=== PATIENT | female | born 1985 | race American Indian/Alaskan Native ===

== ENCOUNTER 2018-06-17 22:26 | Inpatient (IN) | payer OTHER ==
[2018-06-17] MEDS ORDERED: NACL 0.9% 1000 ML 1,000 ML IV ONE (23:36)
[2018-06-17] MEDS ORDERED: BENADRYL IV ONE (23:44)
[2018-06-17] MEDS ORDERED: REGLAN IV ONE (23:44)
[2018-06-17] MEDS ORDERED: MORPHINE IV ONE (23:44)
--- NOTE | 2018-06-17 23:53 | Emergency Department Report ---
ED Abdominal Pain HPI - General Chief Complaint: Nausea/Vomiting/Diarrhea Stated Complaint: WEAKNESS/EMESIS Time Seen by Provider: 06/17/18 23:43 Source: patient Mode of arrival: Ambulatory Limitations: No Limitations - History of Present Illness Initial Comments: PT is s 33 y/o aaf with hx of peptic ulcer disease who presents for abd pain and n/v 1 week with some diarrhea and constipation last vomiting 20 minutes ago last by mouth intake 3 days ago pain described as 8/10 burning aching . The patient is not taken H2 blockers at this time MD Complaint: abdominal pain Onset/Timin -: week(s) Location: diffuse Migration to: periumbilical, LLQ, RLQ Severity: moderate Severity scale (0 -10): 7 Quality: sharp Consistency: constant Improves With: nothing Worsens With: eating, movement Context: other (peptic ulcer) Associated Symptoms: nausea, vomiting, diarrhea, constipation - Related Data LMP (females 10-50): other (1 yr ago) Home Medications Medication Instructions Recorded Confirmed Last Taken Hyoscyamine Subl [Levsin Sl 0.125 0.125 mg SL Q6HR PRN 05/23/15 05/23/15 Unknown TAB] Zolpidem Tartrate [Edluar SUBL] 10 mg PO QHS PRN 05/23/15 05/23/15 05/23/15 yes Allergies Allergy/AdvReac Type Severity Reaction Status Date / Time No Known Allergies Allergy Verified 05/23/15 22:19 ED Review of Systems ROS: Stated complaint: WEAKNESS/EMESIS Other details as noted in HPI Constitutional: chills, malaise. denies: fever Eyes: denies: eye pain, eye discharge, vision change ENT: denies: ear pain, throat pain Respiratory: denies: cough, shortness of breath, wheezing Cardiovascular: denies: chest pain, palpitations Endocrine: no symptoms reported Gastrointestinal: abdominal pain, nausea, vomiting, diarrhea, constipation Genitourinary: denies: urgency, dysuria, discharge Musculoskeletal: back pain. denies: joint swelling, arthralgia Skin: denies: rash, lesions Neurological: denies: headache, weakness, paresthesias Psychiatric: denies: anxiety, depression Hematological/Lymphatic: denies: easy bleeding, easy bruising ED Past Medical Hx - Past Medical History Previous Medical History?: Yes Additional medical history: Stomach Ulcers - Surgical History Past Surgical History?: Yes Additional Surgical History: Tonsillectomy - Social History Smoking Status: Current Every Day Smoker Substance Use Type: None - Medications Home Medications: Home Medications Medication Instructions Recorded Confirmed Last Taken Type Hyoscyamine Subl [Levsin Sl 0.125 0.125 mg SL Q6HR PRN 05/23/15 05/23/15 Unknown History TAB] Zolpidem Tartrate [Edluar SUBL] 10 mg PO QHS PRN 05/23/15 05/23/15 05/23/15 History yes ED Physical Exam - General Limitations: No Limitations General appearance: alert, in no apparent distress - Head Head exam: Present: atraumatic, normocephalic - Eye Eye exam: Present: normal appearance, PERRL, EOMI - ENT ENT exam: Present: mucous membranes moist - Neck Neck exam: Present: normal inspection - Respiratory Respiratory exam: Present: normal lung sounds bilaterally. Absent: respiratory distress, wheezes, stridor, chest wall tenderness - Cardiovascular Cardiovascular Exam: Present: normal rhythm, tachycardia, normal heart sounds. Absent: systolic murmur, diastolic murmur, rubs, gallop - GI/Abdominal GI/Abdominal exam: Present: soft, tenderness (RLQ LLQ ), hyperactive bowel so unds. Absent: distended, guarding, rebound, rigid, mass, bruit, hernia - Rectal Rectal exam: Present: deferred - Extremities Exam Extremities exam: Present: normal inspection, full ROM, normal capillary refill. Absent: tenderness, pedal edema, joint swelling - Back Exam Back exam: Present: normal inspection, full ROM. Absent: tenderness, CVA tenderness (R), CVA tenderness (L), muscle spasm, paraspinal tenderness, vertebral tenderness, rash noted - Neurological Exam Neurological exam: Present: alert, oriented X3, CN II-XII intact, normal gait - Psychiatric Psychiatric exam: Present: normal affect, normal mood - Skin Skin exam: Present: warm, dry, intact, normal color. Absent: rash ED Course Vital Signs 06/17/18 06/18/18 22:37 01:05 Temperature 97 F L Pulse Rate 133 H Respiratory 18 20 Rate Blood Pressure 117/90 O2 Sat by Pulse 99 Oximetry ED Medical Decision Making - Lab Data Result diagrams: 06/17/18 23:07 06/17/18 23:07 Labs 06/17/18 06/17/18 06/17/18 23:00 23:07 23:07 WBC 24.4 H RBC 4.36 Hgb 15.6 H Hct 44.4 H MCV 102 H MCH 36 H MCHC 35 H RDW 15.6 H Plt Count 177 PT INR APTT Sodium 134 L Potassium 3.7 Chloride 91.6 L Carbon Dioxide 19 L Anion Gap 27 BUN 10 Creatinine 0.5 L Estimated GFR 10 BUN/Creatinine Ratio 20 Glucose 159 H Calcium 9.5 Total Bilirubin 0.90 AST 69 H ALT 50 Alkaline Phosphatase 142 H Total Protein 8.2 Albumin 3.8 L Albumin/Globulin Ratio 0.9 Lipase 2528 H HCG, Qual 06/17/18 06/18/18 23:07 00:02 WBC RBC Hgb Hct MCV MCH MCHC RDW Plt Count PT 13.2 INR 0.95 APTT 24.9 Sodium Potassium Chloride Carbon Dioxide Anion Gap BUN Creatinine Estimated GFR BUN/Creatinine Ratio Glucose Calcium Total Bilirubin AST ALT Alkaline Phosphatase Total Protein Albumin Albumin/Globulin Ratio Lipase HCG, Qual Negative - Radiology Data Radiology results: report reviewed, image reviewed - Medical Decision Making CT abd pelvis: enlarged pancreas moderate stranding and LUQ free fluid, pain is improved, pt confirms last ETOH 3 days ago , denies withdrawal symptoms, no tremor noted, no agitation, no hallucinations noted at this time , N/V is improved with reglan given in ed pain is now 4/10 , plan: Consult ED attending, Consult Hospitalist, admit to hospitalist for dx pancreatitis , consult General Surgery for free fluid abd. 0210: consult Ed attending Dr Morton: recommendation consult General Surgery , consult hospitalist for Dx. Acute Pancreatitis, IVFs , Zosyn, pain control, 2015: Consulted General Surgery Dr. Ortez: recommendation : Gallbladder US now and repeat tomorrow, repeat Lipase, and lactic Acid, IVFs, Admit to Hospitalist Dx: Pancreatitis 0220: Consulted Hospitalist for patient Handoff report, at this time Dx: Pancreatitis, Discussed same with patient, patient verbalizes agreement and consent with tx plan, will admit for dx : pancreatitis, abs, ivfs, nausea and pain control, pt is currently a/o x 3 with nad at this time pain is 4/10 and managable per patient . Critical care attestation.: If time is entered above; I have spent that time in minutes in the direct care of this critically ill patient, excluding procedure time. ED Disposition Clinical Impression: Pancreatitis Qualifiers: Chronicity: acute Pancreatitis type: unspecified pancreatitis type Acute pancreatitis complication: unspecified Qualified Code(s): K85.90 - Acute pancreatitis without necrosis or infection, unspecified Abdominal pain Qualifiers: Abdominal location: generalized Qualified Code(s): R10.84 - Generalized abdominal pain Disposition: OP ADMIT IP TO THIS HOSP Is pt being admited?: Yes Does the pt Need Aspirin: No Condition: Stable Instructions: Pancreatitis (ED) Time of Disposition: 02:31
[2018-06-17 23:56] LABS: Hematocrit 44.4 % (30.3-42.9); Hemoglobin 15.6 gm/dl (10.1-14.3); Mean Corpuscular HGB Conc 35 % (30-34); Mean Corpuscular Volume 102 fl (79-97); Platelet Count 177 K/mm3 (140-440); Red Blood Count 4.36 M/mm3 (3.65-5.03); Red Cell Distribution Width 15.6 % (13.2-15.2)
[2018-06-18 00:17] LABS: Albumin 3.8 g/dL (3.9-5); Calcium 9.5 mg/dL (8.4-10.2)
[2018-06-18 01:26] LABS: INR 0.95 (0.87-1.13); Partial Thromboplastin Time 24.9 Sec. (24.2-36.6)
--- NOTE | 2018-06-18 01:39 | Cat Scan Report ---
PROCEDURE: CT ABDOMEN PELVIS W CON TECHNIQUE: Computerized axial tomography of the abdomen and pelvis was performed after the IV inject ion of iodinated nonionic contrast. HISTORY: abd pain COMPARISONS: None . FINDINGS: Visualized lower thorax: No significant abnormality. Liver: The liver is fatty infiltrated. Spleen: Normal size and attenuation. Gallbladder and biliary system: The gallbladder is distended. No stones are noted.. Pancreas: Pancreas is enlarged. There are a few small cystic regions identified near the head of the pancreas. There is mesenteric fat stranding surrounding the pancreas with minimal fluid in this grace on. Acute pancreatitis is within the differential. There is no evidence of necrosis. No pseudocyst is seen.. Adrenals: Normal. Kidneys: Normal. GI tract: The stomach is normal. The small bowel has a normal caliber without obstruction. There are a few loops of slightly dilated small bowel in the lower abdomen near the terminal ileum. A mild ile us in this region is active. An enteritis is also within the differential. The cecum and appendix are normal. There is slight thickening of the colon wall involving the distal transverse and descending colon, no complication.. . Lymph nodes and mesentery: Normal. Vasculature: Normal.. Bladder: Normal. Reproductive organs: No pelvic masses. Peritoneum: Moderate fluid identified in the upper abdomen around the pancreas and left upper quadran t. There is moderate fluid in the lower pelvis.. Musculoskeletal structures: No significant abnormality. Other: None . IMPRESSION: The pancreas is diffusely enlarged. There is stranding of the peripancreatic fat with fl uid in the upper abdomen around the pancreas and left upper quadrant. Pancreatitis is suspected. Ther e are a few small cysts in the head of the pancreas. No evidence of necrosis or pseudocyst formation. There is fatty infiltration of the liver. There is distention of the gallbladder lumen. No stones are identified. There are a few loops of slightly dilated fluid-filled small bowel in the lower abdomen near the term inal ileum. The terminal ileitis, mild ileus or slight enteritis in this region are within the differ ential. There is some bowel wall thickening of the colon involving the distal transverse and descendi ng colon. A diffuse colitis pattern is suspected. No complication . This document is electronically signed by Giovana Sanchez DO., June 18 2018 01:37:31 AM ET
[2018-06-18] MEDS ORDERED: ZOSYN/NS 4.5GM/100ML 4.5 GM/100 ML VIAL IV ONE (01:56)
[2018-06-18] MEDS ORDERED: NACL 0.9% 1000 ML 1,000 ML IV ONE (02:20)
[2018-06-18 02:22] LABS: Basophils % (Manual) 0 % (0.0-1.8); Eosinophils % (Manual) 0 % (0.0-4.3); Total Cells Counted 100
[2018-06-18 02:23] LABS: Large Platelets 1+; Platelet Estimate Consistent w Auto; RBC Morphology Normal
[2018-06-18] MEDS ORDERED: TYLENOL PO PRN (03:17)
[2018-06-18] MEDS ORDERED: ZOFRAN IV PRN (03:17)
[2018-06-18] MEDS ORDERED: SODIUM CHLORIDE FLUSH SYRINGE 10 ML IV PRN (03:17)
--- NOTE | 2018-06-18 03:25 | Ultrasound Report ---
PROCEDURE: US ABDOMEN LIMITED TECHNIQUE: Routine transabdominal imaging was obtained of the right upper quadrant. HISTORY: abd pain COMPARISONS: CT abdomen pelvis 06/18/2018 FINDINGS: The gallbladder is normal in size and contains sludge. Stones are not seen. The gallbladder wall thic kness is 2.7 mm. The common bile duct is enlarged at 7.8 mm. The liver reveals increased echotexture compatible hepatic steatosis. The pancreas is not well seen because of bowel gas. The right kidney sh ows no evidence of hydronephrosis. IMPRESSION: Dependent sludge in the gallbladder. No gallstones or secondary signs of acute cholecystitis. Enlarged common bile duct at 7.8 mm. A distal common duct stone cannot be excluded. Hepatic steatosis. Pancreas is not well seen because of obscuring bowel gas.. This document is electronically signed by Rehan Casey MD., June 18 2018 03:22:44 AM ET
--- NOTE | 2018-06-18 03:29 | History and Physical Report ---
History of Present Illness Date of examination: 06/18/18 History of present illness: 33-year-old woman with a history of peptic ulcer disease comes emergency room, complaining of abdominal pain that started on Monday. Pain is in the epigastric area, described as a sharp pain, constant, intensity 8/10, radiating to the back. She took ibuprofen, hydrocodone for the pain without any relief. Rest and also vomiting 3 days, unable to tolerate oral intake. Drinks 3 shots a day, last drink was . She thinks she might have vomited some blood today, none seen in the ER Review of systems Constitutional: no weight loss, chills, fever Ears, eyes, nose, mouth and throat: no nasal congestion, no nasal discharge, no sinus pressure, no vision change, no red eye. Neck: No neck pain or rigidity. Cardiovascular: no palpitations, chest pain Respiratory: no cough, shortness of breath Gastrointestinal: no hematochezia, abdominal pain Genitourinary : no frequency , no hematuria Musculoskeletal: no joint swelling or muscle ache Integumentary: no rash, no pruritis Neurological: no parathesias, no focal weakness Endocrine: no cold or heat intolerance, no polyuria or polydipsia Hematologic/Lymphatic: no easy bruising, no easy bleeding, no gland swelling Allergic/Immunologic: no urticaria, no angioedema. PAST MEDICAL HISTORY:peptic ulcer disease PAST SURGICAL HISTORY: Tonsillectomy SOCIAL HISTORY:Drinks 3 shots a day, no drugs, smoke 1pack a day FAMILY HISTORY: Hypertension Medications and Allergies Allergies Allergy/AdvReac Type Severity Reaction Status Date / Time No Known Allergies Allergy Verified 05/23/15 22:19 Home Medications Medication Instructions Recorded Confirmed Last Taken Type No Known Home Medications [No 06/18/18 06/18/18 Unknown History Reported Home Medications] Active Meds: Active Medications Acetaminophen (Tylenol) 650 mg PO Q4H PRN PRN Reason: Pain MILD(1-3)/Fever >100.5/NARAYANAN Dextrose/Sodium Chloride (D5ns) 1,000 mls @ 200 mls/hr IV DIRECT MEENA Sodium Chloride (Nacl 0.9% 1000 Ml) 1,000 mls @ 125 mls/hr IV DIRECT MEENA Piperacillin Sod/Tazobactam Sod (Zosyn/Ns 3.375gm/50ml) 3.375 gm in 50 mls @ 100 mls/hr IV Q8HR [facility] Morphine Sulfate (Morphine) 2 mg IV Q4H PRN PRN Reason: Pain, Moderate (4-6) Ondansetron HCl (Zofran) 4 mg IV Q4H PRN PRN Reason: Nausea And Vomiting Sodium Chloride (Sodium Chloride Flush Syringe 10 Ml) 10 ml IV BID MEENA Sodium Chloride (Sodium Chloride Flush Syringe 10 Ml) 10 ml IV PRN PRN PRN Reason: LINE FLUSH Exam - Physical Exam Narrative exam: General Apperance: The patient lying in bed, breathing comfortable HEENT: Normocephalic, atraumatic. Pupils equally round and reactive to light, EOMI, no sclericterus or JVD or thyromegaly or nodule. , no carotid bruit, mucous membranes moist, no exudate or erythema Heart: S1-S2, regular is rhythm Lungs: Clear to auscultation bilaterally, breathing comfortable Abdomen: Positive bowel sounds, soft, tender in the epigastric area, nondistended, no organomegaly Extremities: No edema cyanosis clubbing Skin: no rash, nodule, warm and dry Neuro: cranial nerves 2-12 intact, speech is fluent, motor/sensory intact - Constitutional Vitals: Temp Pulse Resp BP Pulse Ox 97 F L 133 H 16 117/90 99 06/17/18 22:37 06/17/18 22:37 06/18/18 01:35 06/17/18 22:37 06/17/18 22:37 Results - Labs CBC & Chem 7: 06/17/18 23:07 06/17/18 23:07 Labs: Abnormal lab results 06/17/18 06/17/18 06/17/18 Range/Units 23:00 23:07 23:07 WBC 24.4 H (4.5-11.0) K/mm3 Hgb 15.6 H (10.1-14.3) gm/dl Hct 44.4 H (30.3-42.9) % MCV 102 H (79-97) fl MCH 36 H (28-32) pg MCHC 35 H (30-34) % RDW 15.6 H (13.2-15.2) % Seg Neuts % (Manual) 95.0 H (40.0-70.0) % Lymphocytes % (Manual) 1.0 L (13.4-35.0) % Seg Neutrophils # Man 23.2 H (1.8-7.7) K/mm3 Lymphocytes # (Manual) 0.2 L (1.2-5.4) K/mm3 Monocytes # (Manual) 1.0 H (0.0-0.8) K/mm3 Sodium 134 L (137-145) mmol/L Chloride 91.6 L (98-107) mmol/L Carbon Dioxide 19 L (22-30) mmol/L Creatinine 0.5 L (0.7-1.2) mg/dL Glucose 159 H (65-100) mg/dL AST 69 H (5-40) units/L Alkaline Phosphatase 142 H (35-129) units/L Albumin 3.8 L (3.9-5) g/dL Lipase 2528 H (13-60) units/L - Imaging and Cardiology CT scan - abdomen: report reviewed CT scan - pelvis: report reviewed Assessment and Plan Assessment Acute pancreatitis SIRS Free fluid in abdomen Possible colitis Possibly hematemesis Alcohol abuse Plan Admit to medicine Start IV fluids, bowel rest, IV morphine Surgery was consulted to see the patient in the ER Monitor serial hemoglobin, start PPI, DVT prophylaxis Start CIWA protocol, consult GI
[2018-06-18] MEDS ORDERED: PROTONIX IV ONE ×2 (03:30→04:52)
[2018-06-18] MEDS ORDERED: ATIVAN IV PRN ×2 (03:31)
[2018-06-18] MEDS: D5NS 1,000 ML IV SCH ×2 (04:48→07:13)
[2018-06-18] MEDS ORDERED: MORPHINE ONE (04:52)
[2018-06-18] MEDS: MORPHINE IV PRN ×2 (04:55→09:31)
[2018-06-18 06:49] LABS: Hematocrit 38.8 % (30.3-42.9); Hemoglobin 13.1 gm/dl (10.1-14.3)
[2018-06-18 08:05] LABS: Bilirubin,Urine NEG (Negative); Blood,Urine SM (Negative); Color,Urine Yellow (Yellow); Mucus,Urine FEW /HPF; Urobilinogen,Urine < 2.0 mg/dL (<2.0)
--- NOTE | 2018-06-18 08:52 | Consultation ---
History of Present Illness Consult date: 06/18/18 Reason for consult: abdominal pain Requesting physician: ZEHRA KOHLI Chief complaint: abdominal pain for 1 week - History of present illness History of present illness: 33yo F to the emergency department with one-week history of abdominal pain, nausea, vomiting. She was assessed to have acute alcoholic pancreatitis She has had 2 prior episodes like this. During one of these times, she was admitted to [facility] she drinks at least 2 shots daily. Over the last week she has had more to drink. She reports chills, sweats, nausea, vomiting. She reports that yesterday she had hematemesis as well as black emesis. Denies any blood per rectum. Her pain is currently a 7 out of 10. She has a lot of flank and back pain. Past History Past Medical History: No medical history Past Surgical History: tonsillectomy Social history: smoking (1 ppd), alcohol abuse (at least 2 shots a day). denies: IV drug use Family history: no significant family history Medications and Allergies Allergies Allergy/AdvReac Type Severity Reaction Status Date / Time No Known Allergies Allergy Verified 05/23/15 22:19 Home Medications Medication Instructions Recorded Confirmed Last Taken Type No Known Home Medications [No 06/18/18 06/18/18 Unknown History Reported Home Medications] Active Meds: Active Medications Acetaminophen (Tylenol) 650 mg PO Q4H PRN PRN Reason: Pain MILD(1-3)/Fever >100.5/NARAYANAN Dextrose/Sodium Chloride (D5ns) 1,000 mls @ 200 mls/hr IV DIRECT MEENA Last Admin: 06/18/18 07:13 Dose: 200 mls/hr Documented by: Sodium Chloride (Nacl 0.9% 1000 Ml) 1,000 mls @ 125 mls/hr IV DIRECT MEENA Piperacillin Sod/Tazobactam Sod (Zosyn/Ns 3.375gm/50ml) 3.375 gm in 50 mls @ 100 mls/hr IV Q8H MEENA Lorazepam (Ativan) 2 mg IV Q1HR PRN PRN Reason: CIWA-Ar 8-15 Lorazepam (Ativan) 4 mg IV Q1HR PRN PRN Reason: CIWA-Ar 16-25 Morphine Sulfate (Morphine) 2 mg IV Q4H PRN PRN Reason: Pain, Moderate (4-6) Last Admin: 06/18/18 04:55 Dose: 2 mg Documented by: Ondansetron HCl (Zofran) 4 mg IV Q4H PRN PRN Reason: Nausea And Vomiting Pantoprazole Sodium (Protonix) 40 mg IV DAILY MEENA Sodium Chloride (Sodium Chloride Flush Syringe 10 Ml) 10 ml IV BID MEENA Sodium Chloride (Sodium Chloride Flush Syringe 10 Ml) 10 ml IV PRN PRN PRN Reason: LINE FLUSH Review of Systems - Constitutional chills, sweats, no chronic pain - Cardiovascular no chest pain, no shortness of breath - Respiratory no cough - Gastrointestinal abdominal pain, nausea, vomiting, hematemesis, dyspepsia/bloating, no BRBPR, no hematochezia - Genitourinary Genitourinary: flank pain - Muskuloskeletal low back pain - Integumentary boils, no pruritis, no redness, no sores, no wounds, no jaundice Exam Vital Signs Temp Pulse Resp BP Pulse Ox 97 F L 133 H 18 117/90 99 06/17/18 22:37 06/17/18 22:37 06/17/18 22:37 06/17/18 22:37 06/17/18 22:37 - General physical appearance Positive: no distress, other (appears to have mild discomfort. Pleasant) - Eyes Positive: normal occular movement. Negative: icteric - Respiratory Positive: normal expansion, normal respiratory effort, clear to auscultation (but diminished BS bilaterally) - Cardiovascular Rhythm: regular (mild tachy) - Abdomen Abdomen: Present: soft, tender (maximum tenderness in epigastric area. less so in flanks. No pelvic shake tenderness.), bowel sounds hypoactive (none). Absent: distended, guarding, rigid - Integumentary no rash, no growths, no abnormal pigmentation - Neurologic Neurologic: alert and oriented to time, place and person, motor strength and sensation are grossly intact - Psychiatric Psychiatric: appropriate mood/affect, intact judgment & insight Results - Labs 06/18/18 06:28 06/17/18 23:07 Abnormal lab results 06/17/18 06/17/18 06/17/18 Range/Units 23:00 23:07 23:07 WBC 24.4 H (4.5-11.0) K/mm3 Hgb 15.6 H (10.1-14.3) gm/dl Hct 44.4 H (30.3-42.9) % MCV 102 H (79-97) fl MCH 36 H (28-32) pg MCHC 35 H (30-34) % RDW 15.6 H (13.2-15.2) % Seg Neuts % (Manual) 95.0 H (40.0-70.0) % Lymphocytes % (Manual) 1.0 L (13.4-35.0) % Seg Neutrophils # Man 23.2 H (1.8-7.7) K/mm3 Lymphocytes # (Manual) 0.2 L (1.2-5.4) K/mm3 Monocytes # (Manual) 1.0 H (0.0-0.8) K/mm3 Sodium 134 L (137-145) mmol/L Chloride 91.6 L (98-107) mmol/L Carbon Dioxide 19 L (22-30) mmol/L Creatinine 0.5 L (0.7-1.2) mg/dL Glucose 159 H (65-100) mg/dL AST 69 H (5-40) units/L Alkaline Phosphatase 142 H (35-129) units/L Albumin 3.8 L (3.9-5) g/dL Lipase 2528 H (13-60) units/L Ur Specific [place] (1.003-1.030) 06/18/18 06/18/18 Range/Units 05:29 06:27 WBC (4.5-11.0) K/mm3 Hgb (10.1-14.3) gm/dl Hct (30.3-42.9) % MCV (79-97) fl MCH (28-32) pg MCHC (30-34) % RDW (13.2-15.2) % Seg Neuts % (Manual) (40.0-70.0) % Lymphocytes % (Manual) (13.4-35.0) % Seg Neutrophils # Man (1.8-7.7) K/mm3 Lymphocytes # (Manual) (1.2-5.4) K/mm3 Monocytes # (Manual) (0.0-0.8) K/mm3 Sodium (137-145) mmol/L Chloride (98-107) mmol/L Carbon Dioxide (22-30) mmol/L Creatinine (0.7-1.2) mg/dL Glucose (65-100) mg/dL AST (5-40) units/L Alkaline Phosphatase (35-129) units/L Albumin (3.9-5) g/dL Lipase 2051 H (13-60) units/L Ur Specific [place] 1.060 H (1.003-1.030) Diabetes panel 06/17/18 Range/Units 23:07 Sodium 134 L (137-145) mmol/L Potassium 3.7 (3.6-5.0) mmol/L Chloride 91.6 L (98-107) mmol/L Carbon Dioxide 19 L (22-30) mmol/L BUN 10 (7-17) mg/dL Creatinine 0.5 L (0.7-1.2) mg/dL Glucose 159 H (65-100) mg/dL Calcium 9.5 (8.4-10.2) mg/dL AST 69 H (5-40) units/L ALT 50 (7-56) units/L Alkaline Phosphatase 142 H (35-129) units/L Total Protein 8.2 (6.3-8.2) g/dL Albumin 3.8 L (3.9-5) g/dL Calcium panel 06/17/18 Range/Units 23:07 Calcium 9.5 (8.4-10.2) mg/dL Albumin 3.8 L (3.9-5) g/dL Pituitary panel 06/17/18 Range/Units 23:07 Sodium 134 L (137-145) mmol/L Potassium 3.7 (3.6-5.0) mmol/L Chloride 91.6 L (98-107) mmol/L Carbon Dioxide 19 L (22-30) mmol/L BUN 10 (7-17) mg/dL Creatinine 0.5 L (0.7-1.2) mg/dL Glucose 159 H (65-100) mg/dL Calcium 9.5 (8.4-10.2) mg/dL Adrenal panel 06/17/18 Range/Units 23:07 Sodium 134 L (137-145) mmol/L Potassium 3.7 (3.6-5.0) mmol/L Chloride 91.6 L (98-107) mmol/L Carbon Dioxide 19 L (22-30) mmol/L BUN 10 (7-17) mg/dL Creatinine 0.5 L (0.7-1.2) mg/dL Glucose 159 H (65-100) mg/dL Calcium 9.5 (8.4-10.2) mg/dL Total Bilirubin 0.90 (0.1-1.2) mg/dL AST 69 H (5-40) units/L ALT 50 (7-56) units/L Alkaline Phosphatase 142 H (35-129) units/L Total Protein 8.2 (6.3-8.2) g/dL Albumin 3.8 L (3.9-5) g/dL - Imaging CT scan - abdomen: report reviewed, image reviewed CT scan - pelvis: report reviewed, image reviewed US - abdomen: report reviewed, image reviewed Assessment and Plan - Patient Problems (1) Pancreatitis Current Visit: No Status: Acute Qualifiers: Chronicity: acute Pancreatitis type: alcohol induced Acute pancreatitis complication: no infection or necrosis Qualified Code(s): K85.20 - Alcohol induced acute pancreatitis without necrosis or infection Plan to address problem: Patient appears stable at this time. Patient will need aggressive resuscitation and she is very dehydrated. There is no evidence of necrosis or air around the pancreas that would suggest an infected pancreatitis. She does not have an acute abdomen. We do not recommend any surgical or interventional radiology procedure at this time. I had a long conversation with the patient about the risks of recurrent pancreatitis. She has been strongly advised to stop the alcohol and smoking. Labs ordered for the morning. Follow along. Please call with questions. Time=30min
[2018-06-18] MEDS: PROTONIX IV SCH (09:30)
[2018-06-18] MEDS: SODIUM CHLORIDE FLUSH SYRINGE 10 ML IV SCH ×2 (09:30→22:00)
[2018-06-18] MEDS: ZOSYN/NS 3.375GM/50ML 3.375 GM/50 ML BAG IV SCH ×2 (09:52→17:26)
[2018-06-18 10:14] LABS: Hematocrit 37.4 % (30.3-42.9); Hemoglobin 12.8 gm/dl (10.1-14.3)
--- NOTE | 2018-06-18 12:38 | Progress Note ---
Assessment and Plan - Patient Problems (1) Abdominal pain Current Visit: No Status: Acute Qualifiers: Abdominal location: generalized Qualified Code(s): R10.84 - Generalized abdominal pain Plan to address problem: Patient today presents with acute pancreatitis secondary to alcohol use. Patie nt's lipase is decreased from [id number]. Surgical consult obtained. Will be somewhat more aggressive with patient's pain control. (2) Pancreatitis Current Visit: No Status: Acute Qualifiers: Chronicity: acute Pancreatitis type: alcohol induced Acute pancreatitis complication: no infection or necrosis Qualified Code(s): K85.20 - Alcohol induced acute pancreatitis without necrosis or infection Plan to address problem: See #1. (3) ETOH abuse Current Visit: Yes Status: Acute Plan to address problem: Educated and counseled on alcohol and its related this to acute pancreatitis. [facility] protocol. Monitor electrolytes and symptoms of withdrawal. History Interval history: Patient complains mostly of intolerable abdominal pain. Nausea has resolved. Patient states this have pain on the left side often radiates to back. In control with current morphine. Hospitalist Physical - Constitutional Vitals: Temp Pulse Resp BP Pulse Ox 99.2 F 103 H 16 156/88 97 06/18/18 04:25 06/18/18 04:25 06/18/18 06:47 06/18/18 04:25 06/18/18 09:25 General appearance: Present: no acute distress - EENT Eyes: Present: PERRL, EOM intact ENT: hearing intact, clear oral mucosa, dentition normal - Neck Neck: Present: supple, normal ROM - Respiratory Respiratory: bilateral: CTA - Cardiovascular Rhythm: regular Heart Sounds: Present: S1 & S2 - Extremities Extremities: no ischemia, pulses intact, pulses symmetrical, No edema, normal temperature, normal color, Full ROM Peripheral Pulses: within normal limits - Abdominal General gastrointestinal: soft, tender, hypoactive bowel sounds, no hepatomegaly, no splenomegaly - Integumentary Integumentary: Present: clear, warm, dry - Psychiatric Psychiatric: appropriate mood/affect, intact judgment & insight - Neurologic Neurologic: CNII-XII intact, no focal deficits, moves all extremities Results - Labs CBC & Chem 7: 06/18/18 09:57 06/17/18 23:07 Labs: Laboratory Last Values WBC 24.4 K/mm3 (4.5-11.0) H 06/17/18 23:07 RBC 4.36 M/mm3 (3.65-5.03) 06/17/18 23:07 Hgb 12.8 gm/dl (10.1-14.3) 06/18/18 09:57 Hct 37.4 % (30.3-42.9) 06/18/18 09:57 MCV 102 fl (79-97) H 06/17/18 23:07 MCH 36 pg (28-32) H 06/17/18 23:07 MCHC 35 % (30-34) H 06/17/18 23:07 RDW 15.6 % (13.2-15.2) H 06/17/18 23:07 Plt Count 177 K/mm3 (140-440) 06/17/18 23:07 Add Manual Diff Complete 06/17/18 23:07 Total Counted 100 06/17/18 23:07 Seg Neuts % (Manual) 95.0 % (40.0-70.0) H 06/17/18 23:07 Band Neutrophils % 0 % 06/17/18 23:07 Lymphocytes % (Manual) 1.0 % (13.4-35.0) L 06/17/18 23:07 Reactive Lymphs % (Man) 0 % 06/17/18 23:07 Monocytes % (Manual) 4.0 % (0.0-7.3) 06/17/18 23:07 Eosinophils % (Manual) 0 % (0.0-4.3) 06/17/18 23:07 Basophils % (Manual) 0 % (0.0-1.8) 06/17/18 23:07 Metamyelocytes % 0 % 06/17/18 23:07 Myelocytes % 0 % 06/17/18 23:07 Promyelocytes % 0 % 06/17/18 23:07 Blast Cells % 0 % 06/17/18 23:07 Nucleated RBC % Not Reportable 06/17/18 23:07 Seg Neutrophils # Man 23.2 K/mm3 (1.8-7.7) H 06/17/18 23:07 Band Neutrophils # 0.0 K/mm3 06/17/18 23:07 Lymphocytes # (Manual) 0.2 K/mm3 (1.2-5.4) L 06/17/18 23:07 Abs React Lymphs (Man) 0.0 K/mm3 06/17/18 23:07 Monocytes # (Manual) 1.0 K/mm3 (0.0-0.8) H 06/17/18 23:07 Eosinophils # (Manual) 0.0 K/mm3 (0.0-0.4) 06/17/18 23:07 Basophils # (Manual) 0.0 K/mm3 (0.0-0.1) 06/17/18 23:07 Metamyelocytes # 0.0 K/mm3 06/17/18 23:07 Myelocytes # 0.0 K/mm3 06/17/18 23:07 Promyelocytes # 0.0 K/mm3 06/17/18 23:07 Blast Cells # 0.0 K/mm3 06/17/18 23:07 WBC Morphology Not Reportable 06/17/18 23:07 Hypersegmented Neuts Not Reportable 06/17/18 23:07 Hyposegmented Neuts Not Reportable 06/17/18 23:07 Hypogranular Neuts Not Reportable 06/17/18 23:07 Smudge Cells Not Reportable 06/17/18 23:07 Toxic Granulation Not Reportable 06/17/18 23:07 Toxic Vacuolation Not Reportable 06/17/18 23:07 Dohle Bodies Not Reportable 06/17/18 23:07 Pelger-Huet Anomaly Not Reportable 06/17/18 23:07 Reuben Rods Not Reportable 06/17/18 23:07 Platelet Estimate Consistent w auto 06/17/18 23:07 Clumped Platelets Not Reportable 06/17/18 23:07 Plt Clumps, EDTA Not Reportable 06/17/18 23:07 Large Platelets 1+ 06/17/18 23:07 Giant Platelets Not Reportable 06/17/18 23:07 Platelet Satelliting Not Reportable 06/17/18 23:07 Plt Morphology Comment Not Reportable 06/17/18 23:07 RBC Morphology Normal 06/17/18 23:07 Dimorphic RBCs Not Reportable 06/17/18 23:07 Polychromasia Not Reportable 06/17/18 23:07 Hypochromasia Not Reportable 06/17/18 23:07 Poikilocytosis Not Reportable 06/17/18 23:07 Anisocytosis Not Reportable 06/17/18 23:07 Microcytosis Not Reportable 06/17/18 23:07 Macrocytosis Not Reportable 06/17/18 23:07 Spherocytes Not Reportable 06/17/18 23:07 Pappenheimer Bodies Not Reportable 06/17/18 23:07 Sickle Cells Not Reportable 06/17/18 23:07 Target Cells Not Reportable 06/17/18 23:07 Tear Drop Cells Not Reportable 06/17/18 23:07 Ovalocytes Not Reportable 06/17/18 23:07 Helmet Cells Not Reportable 06/17/18 23:07 [place] Bodies Not Reportable 06/17/18 23:07 [place] Rings Not Reportable 06/17/18 23:07 [place] Cells Not Reportable 06/17/18 23:07 Bite Cells Not Reportable 06/17/18 23:07 Crenated Cell Not Reportable 06/17/18 23:07 Elliptocytes Not Reportable 06/17/18 23:07 Acanthocytes (Spur) Not Reportable 06/17/18 23:07 Rouleaux Not Reportable 06/17/18 23:07 Hemoglobin C Crystals Not Reportable 06/17/18 23:07 Schistocytes Not Reportable 06/17/18 23:07 Malaria parasites Not Reportable 06/17/18 23:07 Jay Bodies Not Reportable 06/17/18 23:07 Hem Pathologist Commnt No 06/17/18 23:07 PT 13.2 Sec. (12.2-14.9) 06/18/18 00:02 INR 0.95 (0.87-1.13) 06/18/18 00:02 APTT 24.9 Sec. (24.2-36.6) 06/18/18 00:02 Sodium 134 mmol/L (137-145) L 06/17/18 23:07 Potassium 3.7 mmol/L (3.6-5.0) 06/17/18 23:07 Chloride 91.6 mmol/L (98-107) L 06/17/18 23:07 Carbon Dioxide 19 mmol/L (22-30) L 06/17/18 23:07 Anion Gap 27 mmol/L 06/17/18 23:07 BUN 10 mg/dL (7-17) 06/17/18 23:07 Creatinine 0.5 mg/dL (0.7-1.2) L 06/17/18 23:07 Estimated GFR 10 ml/min 06/17/18 23:07 BUN/Creatinine Ratio 20 % 06/17/18 23:07 Glucose 159 mg/dL (65-100) H 06/17/18 23:07 Lactic Acid 1.70 mmol/L (0.7-2.0) 06/18/18 02:25 Calcium 9.5 mg/dL (8.4-10.2) 06/17/18 23:07 Total Bilirubin 0.90 mg/dL (0.1-1.2) 06/17/18 23:07 AST 69 units/L (5-40) H 06/17/18 23:07 ALT 50 units/L (7-56) 06/17/18 23:07 Alkaline Phosphatase 142 units/L (35-129) H 06/17/18 23:07 Total Protein 8.2 g/dL (6.3-8.2) 06/17/18 23:07 Albumin 3.8 g/dL (3.9-5) L 06/17/18 23:07 Albumin/Globulin Ratio 0.9 % 06/17/18 23:07 Lipase 2051 units/L (13-60) H 06/18/18 05:29 HCG, Qual Negative (Negative) 06/17/18 23:07 Urine Color Yellow (Yellow) 06/18/18 06:27 Urine Turbidity Clear (Clear) 06/18/18 06:27 Urine pH 6.0 (5.0-7.0) 06/18/18 06:27 Ur Specific [place] 1.060 (1.003-1.030) H 06/18/18 06:27 Urine Protein 30 mg/dl mg/dL (Negative) 06/18/18 06:27 Urine Glucose (UA) 50 mg/dL (Negative) 06/18/18 06:27 Urine Ketones 80 mg/dL (Negative) 06/18/18 06:27 Urine Blood Sm (Negative) 06/18/18 06:27 Urine Nitrite Neg (Negative) 06/18/18 06:27 Urine Bilirubin Neg (Negative) 06/18/18 06:27 Urine Urobilinogen < 2.0 mg/dL (<2.0) 06/18/18 06:27 Ur Leukocyte Esterase Neg (Negative) 06/18/18 06:27 Urine WBC (Auto) 2.0 /HPF (0.0-6.0) 06/18/18 06:27 Urine RBC (Auto) 4.0 /HPF (0.0-6.0) 06/18/18 06:27 U Epithel Cells (Auto) 7.0 /HPF (0-13.0) 06/18/18 06:27 Urine Mucus Few /HPF 06/18/18 06:27 - Imaging and Cardiology CT scan - abdomen: image reviewed Active Medications - Current Medications Current Medications: Generic Name Dose Route Start Last Admin Trade Name Freq PRN Reason Stop Dose Admin Acetaminophen 650 mg 06/18/18 03:17 Tylenol PO Q4H PRN Pain MILD(1-3)/Fever >100.5/NARAYANAN Dextrose/Sodium Chloride 1,000 mls @ 200 mls/hr 06/17/18 23:45 06/18/18 07:13 D5ns IV 200 mls/hr DIRECT MEENA Administration Sodium Chloride 1,000 mls @ 125 mls/hr 06/18/18 04:00 Nacl 0.9% 1000 Ml IV DIRECT MEENA Piperacillin Sod/Tazobactam Sod 3.375 gm in 50 mls @ 100 mls/hr 06/18/18 10:00 06/18/18 09:52 Zosyn/Ns 3.375gm/50ml IV 100 mls/hr Q8H MEENA Administration Lorazepam 2 mg 06/18/18 03:31 Ativan IV Q1HR PRN CIWA-Ar 8-15 Lorazepam 4 mg 06/18/18 03:31 Ativan IV Q1HR PRN CIWA-Ar 16-25 Morphine Sulfate 2 mg 06/18/18 03:17 06/18/18 09:31 Morphine IV 2 mg Q4H PRN Administration Pain, Moderate (4-6) Ondansetron HCl 4 mg 06/18/18 03:17 Zofran IV Q4H PRN Nausea And Vomiting Pantoprazole Sodium 40 mg 06/18/18 10:00 06/18/18 09:30 Protonix IV 40 mg DAILY MEENA Administration Sodium Chloride 10 ml 06/18/18 10:00 06/18/18 09:30 Sodium Chloride Flush Syringe 10 Ml IV 10 ml BID MEENA Administration Sodium Chloride 10 ml 06/18/18 03:17 Sodium Chloride Flush Syringe 10 Ml IV PRN PRN LINE FLUSH
[2018-06-18] MEDS: DILAUDID IV PRN ×2 (13:12→18:50)
--- NOTE | 2018-06-18 14:20 | Gastroenterology Consultation ---
<KANIKA ALWLER - Last Filed: 06/18/18 14:58> History of Present Illness - Reason for Consult Consult date: 06/18/18 hematemesis Requesting physician: FANNY KHANNA - History of Present Illness Patient is a 33 y/o female with PMH of PUD, ETOH abuse, and pancreatitis (last episode in December 2017) who presented to ED with c/o abdominal pain with associated N/V. Upon admission, lipase was noted to be elevated and abd CT showed pancreatitis to which she was admitted. Surgery following with no recommendation for surgical intervention (no evidence of necrosis on CT) at this time. Patient c/o hematemesis yesterday to which GI has been consulted. This afternoon patient was sitting on the side of the bed w/o acute distress. She reports upper abdominal pain (predominately in epigastric area that radiates to LUQ/RUQ) x 1 week and N/V x 3 days. Symptoms exacerbated with PO intake. Had 1 episode of bloody emesis yesterday described as black in color, mixed with scant amount of bright red blood. Emesis with multiple prior episodes of vomiting were non-bloody. No melena or hematochezia. States she is feeling slightly better today with upper abdominal now improving and N/V resolved. No further signs of bleeding today. Denies fever, CP, SOB, jaundice, wt loss, constipation or diarrhea (resolved). No hx or Fhx of liver disease. Drinks 2 shots of alcohol daily (last alcohol consumption was last per pt report). Smokes 1 PPD. Patient is previously known to our service with last EGD 2015 that showed small hiatal hernia, non-bleeding gastric ulcer, and gastritis (bx positive for H.pylori; s/p treatment). Past History Past Medical History: other (PUD, pancreatitis) Past Surgical History: tonsillectomy, Other (EGD 2016) Social history: smoking (1 ppd), alcohol abuse (at least 2 shots a day). denies: IV drug use Family history: hypertension Medications and Allergies Allergies Allergy/AdvReac Type Severity Reaction Status Date / Time No Known Allergies Allergy Verified 05/23/15 22:19 Home Medications Medication Instructions Recorded Confirmed Last Taken Type No Known Home Medications [No 06/18/18 06/18/18 Unknown History Reported Home Medications] Active Meds: Active Medications Acetaminophen (Tylenol) 650 mg PO Q4H PRN PRN Reason: Pain MILD(1-3)/Fever >100.5/NARAYANAN Hydromorphone HCl (Dilaudid) 1 mg IV Q4H PRN PRN Reason: Pain , Severe (7-10) Last Admin: 06/18/18 13:12 Dose: 1 mg Documented by: Dextrose/Sodium Chloride (D5ns) 1,000 mls @ 200 mls/hr IV DIRECT MEENA Last Admin: 06/18/18 07:13 Dose: 200 mls/hr Documented by: Sodium Chloride (Nacl 0.9% 1000 Ml) 1,000 mls @ 125 mls/hr IV DIRECT MEENA Piperacillin Sod/Tazobactam Sod (Zosyn/Ns 3.375gm/50ml) 3.375 gm in 50 mls @ 100 mls/hr IV Q8H [facility] Last Admin: 06/18/18 09:52 Dose: 100 mls/hr Documented by: Lorazepam (Ativan) 2 mg IV Q1HR PRN PRN Reason: [facility] 8-15 Lorazepam (Ativan) 4 mg IV Q1HR PRN PRN Reason: [facility] 16-25 Ondansetron HCl (Zofran) 4 mg IV Q4H PRN PRN Reason: Nausea And Vomiting Pantoprazole Sodium (Protonix) 40 mg IV DAILY [facility] Last Admin: 06/18/18 09:30 Dose: 40 mg Documented by: Sodium Chloride (Sodium Chloride Flush Syringe 10 Ml) 10 ml IV BID [facility] Last Admin: 06/18/18 09:30 Dose: 10 ml Documented by: Sodium Chloride (Sodium Chloride Flush Syringe 10 Ml) 10 ml IV PRN PRN PRN Reason: LINE FLUSH medications reviewed/updated as required Review of Systems - Review of Systems All systems: negative Gastrointestinal: abdominal pain, nausea, vomiting, hematemesis Exam - Constitutional Vital Signs: Temp Pulse Resp BP Pulse Ox 99.2 F 103 H 16 156/88 97 06/18/18 04:25 06/18/18 04:25 06/18/18 06:47 06/18/18 04:25 06/18/18 09:25 General appearance: no acute distress - EENT Eyes: PERRL, EOM intact ENT: hearing intact - Respiratory Respiratory: bilateral: CTA - Cardiovascular Rhythm: other (tachycardia) - Gastrointestinal General gastrointestinal: Present: soft, tender (epigastric/RUQ/LUQ), non- distended, normal bowel sounds - Neurologic Neurological: alert and oriented x3 - Labs CBC & Chem 7: 06/18/18 14:34 06/17/18 23:07 Lab Results: Laboratory Results - last 24 hr 06/17/18 06/17/18 06/17/18 23:00 23:07 23:07 WBC 24.4 H RBC 4.36 Hgb 15.6 H Hct 44.4 H MCV 102 H MCH 36 H MCHC 35 H RDW 15.6 H Plt Count 177 Add Manual Diff Complete Total Counted 100 Seg Neuts % (Manual) 95.0 H Band Neutrophils % 0 Lymphocytes % (Manual) 1.0 L Reactive Lymphs % (Man) 0 Monocytes % (Manual) 4.0 Eosinophils % (Manual) 0 Basophils % (Manual) 0 Metamyelocytes % 0 Myelocytes % 0 Promyelocytes % 0 Blast Cells % 0 Nucleated RBC % Not Reportable Seg Neutrophils # Man 23.2 H Band Neutrophils # 0.0 Lymphocytes # (Manual) 0.2 L Abs React Lymphs (Man) 0.0 Monocytes # (Manual) 1.0 H Eosinophils # (Manual) 0.0 Basophils # (Manual) 0.0 Metamyelocytes # 0.0 Myelocytes # 0.0 Promyelocytes # 0.0 Blast Cells # 0.0 WBC Morphology Not Reportable Hypersegmented Neuts Not Reportable Hyposegmented Neuts Not Reportable Hypogranular Neuts Not Reportable Smudge Cells Not Reportable Toxic Granulation Not Reportable Toxic Vacuolation Not Reportable Dohle Bodies Not Reportable Pelger-Huet Anomaly Not Reportable Reuben Rods Not Reportable Platelet Estimate Consistent w auto Clumped Platelets Not Reportable Plt Clumps, EDTA Not Reportable Large Platelets 1+ Giant Platelets Not Reportable Platelet Satelliting Not Reportable Plt Morphology Comment Not Reportable RBC Morphology Normal Dimorphic RBCs Not Reportable Polychromasia Not Reportable Hypochromasia Not Reportable Poikilocytosis Not Reportable Anisocytosis Not Reportable Microcytosis Not Reportable Macrocytosis Not Reportable Spherocytes Not Reportable Pappenheimer Bodies Not Reportable Sickle Cells Not Reportable Target Cells Not Reportable Tear Drop Cells Not Reportable Ovalocytes Not Reportable Helmet Cells Not Reportable [place] Bodies Not Reportable [place] Rings Not Reportable Agnieszka Cells Not Reportable Bite Cells Not Reportable Crenated Cell Not Reportable Elliptocytes Not Reportable Acanthocytes (Spur) Not Reportable Rouleaux Not Reportable Hemoglobin C Crystals Not Reportable Schistocytes Not Reportable Malaria parasites Not Reportable Jay Bodies Not Reportable Hem Pathologist Commnt No PT INR APTT Sodium 134 L Potassium 3.7 Chloride 91.6 L Carbon Dioxide 19 L Anion Gap 27 BUN 10 Creatinine 0.5 L Estimated GFR 10 BUN/Creatinine Ratio 20 Glucose 159 H Lactic Acid Calcium 9.5 Total Bilirubin 0.90 AST 69 H ALT 50 Alkaline Phosphatase 142 H Total Protein 8.2 Albumin 3.8 L Albumin/Globulin Ratio 0.9 Lipase 2528 H HCG, Qual Urine Color Urine Turbidity Urine pH Ur Specific [place] Urine Protein Urine Glucose (UA) Urine Ketones Urine Blood Urine Nitrite Urine Bilirubin Urine Urobilinogen Ur Leukocyte Esterase Urine WBC (Auto) Urine RBC (Auto) U Epithel Cells (Auto) Urine Mucus 06/17/18 06/18/18 06/18/18 23:07 00:02 02:25 WBC RBC Hgb Hct MCV MCH MCHC RDW Plt Count Add Manual Diff Total Counted Seg Neuts % (Manual) Band Neutrophils % Lymphocytes % (Manual) Reactive Lymphs % (Man) Monocytes % (Manual) Eosinophils % (Manual) Basophils % (Manual) Metamyelocytes % Myelocytes % Promyelocytes % Blast Cells % Nucleated RBC % Seg Neutrophils # Man Band Neutrophils # Lymphocytes # (Manual) Abs React Lymphs (Man) Monocytes # (Manual) Eosinophils # (Manual) Basophils # (Manual) Metamyelocytes # Myelocytes # Promyelocytes # Blast Cells # WBC Morphology Hypersegmented Neuts Hyposegmented Neuts Hypogranular Neuts Smudge Cells Toxic Granulation Toxic Vacuolation Dohle Bodies Pelger-Huet Anomaly Reuben Rods Platelet Estimate Clumped Platelets Plt Clumps, EDTA Large Platelets Giant Platelets Platelet Satelliting Plt Morphology Comment RBC Morphology Dimorphic RBCs Polychromasia Hypochromasia Poikilocytosis Anisocytosis Microcytosis Macrocytosis Spherocytes Pappenheimer Bodies Sickle Cells Target Cells Tear Drop Cells Ovalocytes Helmet Cells [place] Bodies [place] Rings Agnieszka Cells Bite Cells Crenated Cell Elliptocytes Acanthocytes (Spur) Rouleaux Hemoglobin C Crystals Schistocytes Malaria parasites Jay Bodies Hem Pathologist Commnt PT 13.2 INR 0.95 APTT 24.9 Sodium Potassium Chloride Carbon Dioxide Anion Gap BUN Creatinine Estimated GFR BUN/Creatinine Ratio Glucose Lactic Acid 1.70 Calcium Total Bilirubin AST ALT Alkaline Phosphatase Total Protein Albumin Albumin/Globulin Ratio Lipase HCG, Qual Negative Urine Color Urine Turbidity Urine pH Ur Specific [place] Urine Protein Urine Glucose (UA) Urine Ketones Urine Blood Urine Nitrite Urine Bilirubin Urine Urobilinogen Ur Leukocyte Esterase Urine WBC (Auto) Urine RBC (Auto) U Epithel Cells (Auto) Urine Mucus 06/18/18 06/18/18 06/18/18 05:29 06:27 06:28 WBC RBC Hgb 13.1 Hct 38.8 MCV MCH MCHC RDW Plt Count Add Manual Diff Total Counted Seg Neuts % (Manual) Band Neutrophils % Lymphocytes % (Manual) Reactive Lymphs % (Man) Monocytes % (Manual) Eosinophils % (Manual) Basophils % (Manual) Metamyelocytes % Myelocytes % Promyelocytes % Blast Cells % Nucleated RBC % Seg Neutrophils # Man Band Neutrophils # Lymphocytes # (Manual) Abs React Lymphs (Man) Monocytes # (Manual) Eosinophils # (Manual) Basophils # (Manual) Metamyelocytes # Myelocytes # Promyelocytes # Blast Cells # WBC Morphology Hypersegmented Neuts Hyposegmented Neuts Hypogranular Neuts Smudge Cells Toxic Granulation Toxic Vacuolation Dohle Bodies Pelger-Huet Anomaly Reuben Rods Platelet Estimate Clumped Platelets Plt Clumps, EDTA Large Platelets Giant Platelets Platelet Satelliting Plt Morphology Comment RBC Morphology Dimorphic RBCs Polychromasia Hypochromasia Poikilocytosis Anisocytosis Microcytosis Macrocytosis Spherocytes Pappenheimer Bodies Sickle Cells Target Cells Tear Drop Cells Ovalocytes Helmet Cells [place] Bodies [place] Rings Agnieszka Cells Bite Cells Crenated Cell Elliptocytes Acanthocytes (Spur) Rouleaux Hemoglobin C Crystals Schistocytes Malaria parasites Jay Bodies Hem Pathologist Commnt PT INR APTT Sodium Potassium Chloride Carbon Dioxide Anion Gap BUN Creatinine Estimated GFR BUN/Creatinine Ratio Glucose Lactic Acid Calcium Total Bilirubin AST ALT Alkaline Phosphatase Total Protein Albumin Albumin/Globulin Ratio Lipase 2051 H HCG, Qual Urine Color Yellow Urine Turbidity Clear Urine pH 6.0 Ur Specific [place] 1.060 H Urine Protein 30 mg/dl Urine Glucose (UA) 50 Urine Ketones 80 Urine Blood Sm Urine Nitrite Neg Urine Bilirubin Neg Urine Urobilinogen < 2.0 Ur Leukocyte Esterase Neg Urine WBC (Auto) 2.0 Urine RBC (Auto) 4.0 U Epithel Cells (Auto) 7.0 Urine Mucus Few 06/18/18 09:57 WBC RBC Hgb 12.8 Hct 37.4 MCV MCH MCHC RDW Plt Count Add Manual Diff Total Counted Seg Neuts % (Manual) Band Neutrophils % Lymphocytes % (Manual) Reactive Lymphs % (Man) Monocytes % (Manual) Eosinophils % (Manual) Basophils % (Manual) Metamyelocytes % Myelocytes % Promyelocytes % Blast Cells % Nucleated RBC % Seg Neutrophils # Man Band Neutrophils # Lymphocytes # (Manual) Abs React Lymphs (Man) Monocytes # (Manual) Eosinophils # (Manual) Basophils # (Manual) Metamyelocytes # Myelocytes # Promyelocytes # Blast Cells # WBC Morphology Hypersegmented Neuts Hyposegmented Neuts Hypogranular Neuts Smudge Cells Toxic Granulation Toxic Vacuolation Dohle Bodies Pelger-Huet Anomaly Reuben Rods Platelet Estimate Clumped Platelets Plt Clumps, EDTA Large Platelets Giant Platelets Platelet Satelliting Plt Morphology Comment RBC Morphology Dimorphic RBCs Polychromasia Hypochromasia Poikilocytosis Anisocytosis Microcytosis Macrocytosis Spherocytes Pappenheimer Bodies Sickle Cells Target Cells Tear Drop Cells Ovalocytes Helmet Cells [place] Bodies [place] Rings Agnieszka Cells Bite Cells Crenated Cell Elliptocytes Acanthocytes (Spur) Rouleaux Hemoglobin C Crystals Schistocytes Malaria parasites Jay Bodies Hem Pathologist Commnt PT INR APTT Sodium Potassium Chloride Carbon Dioxide Anion Gap BUN Creatinine Estimated GFR BUN/Creatinine Ratio Glucose Lactic Acid Calcium Total Bilirubin AST ALT Alkaline Phosphatase Total Protein Albumin Albumin/Globulin Ratio Lipase HCG, Qual Urine Color Urine Turbidity Urine pH Ur Specific [place] Urine Protein Urine Glucose (UA) Urine Ketones Urine Blood Urine Nitrite Urine Bilirubin Urine Urobilinogen Ur Leukocyte Esterase Urine WBC (Auto) Urine RBC (Auto) U Epithel Cells (Auto) Urine Mucus Assessment and Plan 1.acute pancreatitis -Temp 99.2 -WBC 24.2 -lipase 2050-trending down -LFTs-T.anthony 0.90, AST 69, ALT 50, alk phos 142 -abd CT showed pancreatitis (no evidence of necrosis or pseudocyst) -abd U/S showed hepatic steatosis, sludge in gallbaldder (no acute cholecystitis), and enlarged CBD (7.8mm; stone not excluded) -surgery following -etiology-most likely 2/2 ETOH -will order triglyceride level in am and MRCP for further evaluation of u/s results (enlarged CBD) to r/o other causes -keep NPO for now -continue to trend labs (CRP in am) -continue supportive care with IVF, pain medications, antiemetics, empiric antibiotics, etc. -alcohol cessation discussed/encouraged with patient-monitor for signs of withdrawal -electrolyte management per primary team 2.hematemesis 3.H/o PUD -plt and INR WNL -H/H WNL (12.8/37.4) -continue to monitor H/H and transfuse as needed -patient reports 1 episode yesterday of bloody emesis (black mixed with scant amount of bright red blood) after 3 days of multiple episodes of vomiting with non-bloody emesis. No melena or hematochezia. -no active signs of bleeding today-HD stable -last EGD 06/29/2015 by showed small hiatal hernia, non-bleeding gastric ulcer, and gastritis (bx result positive for H.pylori; s/p treatment) -etiology-likely 2/2 M-W tear vs esophagitis vs other -no plan for EGD at this time given no clinical evidence of significant GI bleeding ( will consider based on clinical course) -continue PPI -avoid NSAIDs -continue supporitive care -will follow <RICK STEIN - Last Filed: 06/18/18 16:40> Medications and Allergies Active Meds: Active Medications Acetaminophen (Tylenol) 650 mg PO Q4H PRN PRN Reason: Pain MILD(1-3)/Fever >100.5/NARAYANAN Hydromorphone HCl (Dilaudid) 1 mg IV Q4H PRN PRN Reason: Pain , Severe (7-10) Last Admin: 06/18/18 13:12 Dose: 1 mg Documented by: Dextrose/Sodium Chloride (D5ns) 1,000 mls @ 200 mls/hr IV DIRECT MEENA Last Admin: 06/18/18 07:13 Dose: 200 mls/hr Documented by: Sodium Chloride (Nacl 0.9% 1000 Ml) 1,000 mls @ 125 mls/hr IV DIRECT MEENA Piperacillin Sod/Tazobactam Sod (Zosyn/Ns 3.375gm/50ml) 3.375 gm in 50 mls @ 100 mls/hr IV Q8H [facility] Last Admin: 06/18/18 09:52 Dose: 100 mls/hr Documented by: Lorazepam (Ativan) 2 mg IV Q1HR PRN PRN Reason: [facility] 8-15 Lorazepam (Ativan) 4 mg IV Q1HR PRN PRN Reason: [facility] 16-25 Ondansetron HCl (Zofran) 4 mg IV Q4H PRN PRN Reason: Nausea And Vomiting Pantoprazole Sodium (Protonix) 40 mg IV DAILY [facility] Last Admin: 06/18/18 09:30 Dose: 40 mg Documented by: Sodium Chloride (Sodium Chloride Flush Syringe 10 Ml) 10 ml IV BID [facility] Last Admin: 06/18/18 09:30 Dose: 10 ml Documented by: Sodium Chloride (Sodium Chloride Flush Syringe 10 Ml) 10 ml IV PRN PRN PRN Reason: LINE FLUSH Exam - Constitutional Vital Signs: Temp Pulse Resp BP Pulse Ox 99.2 F 103 H 16 156/88 97 06/18/18 04:25 06/18/18 04:25 06/18/18 06:47 06/18/18 04:25 06/18/18 09:25 - Labs CBC & Chem 7: 06/18/18 14:34 06/17/18 23:07 Lab Results: Laboratory Results - last 24 hr 06/17/18 06/17/18 06/17/18 23:00 23:07 23:07 WBC 24.4 H RBC 4.36 Hgb 15.6 H Hct 44.4 H MCV 102 H MCH 36 H MCHC 35 H RDW 15.6 H Plt Count 177 Add Manual Diff Complete Total Counted 100 Seg Neuts % (Manual) 95.0 H Band Neutrophils % 0 Lymphocytes % (Manual) 1.0 L Reactive Lymphs % (Man) 0 Monocytes % (Manual) 4.0 Eosinophils % (Manual) 0 Basophils % (Manual) 0 Metamyelocytes % 0 Myelocytes % 0 Promyelocytes % 0 Blast Cells % 0 Nucleated RBC % Not Reportable Seg Neutrophils # Man 23.2 H Band Neutrophils # 0.0 Lymphocytes # (Manual) 0.2 L Abs React Lymphs (Man) 0.0 Monocytes # (Manual) 1.0 H Eosinophils # (Manual) 0.0 Basophils # (Manual) 0.0 Metamyelocytes # 0.0 Myelocytes # 0.0 Promyelocytes # 0.0 Blast Cells # 0.0 WBC Morphology Not Reportable Hypersegmented Neuts Not Reportable Hyposegmented Neuts Not Reportable Hypogranular Neuts Not Reportable Smudge Cells Not Reportable Toxic Granulation Not Reportable Toxic Vacuolation Not Reportable Dohle Bodies Not Reportable Pelger-Huet Anomaly Not Reportable Reuben Rods Not Reportable Platelet Estimate Consistent w auto Clumped Platelets Not Reportable Plt Clumps, EDTA Not Reportable Large Platelets 1+ Giant Platelets Not Reportable Platelet Satelliting Not Reportable Plt Morphology Comment Not Reportable RBC Morphology Normal Dimorphic RBCs Not Reportable Polychromasia Not Reportable Hypochromasia Not Reportable Poikilocytosis Not Reportable Anisocytosis Not Reportable Microcytosis Not Reportable Macrocytosis Not Reportable Spherocytes Not Reportable Pappenheimer Bodies Not Reportable Sickle Cells Not Reportable Target Cells Not Reportable Tear Drop Cells Not Reportable Ovalocytes Not Reportable Helmet Cells Not Reportable [place] Bodies Not Reportable [place] Rings Not Reportable [place] Cells Not Reportable Bite Cells Not Reportable Crenated Cell Not Reportable Elliptocytes Not Reportable Acanthocytes (Spur) Not Reportable Rouleaux Not Reportable Hemoglobin C Crystals Not Reportable Schistocytes Not Reportable Malaria parasites Not Reportable Jay Bodies Not Reportable Hem Pathologist Commnt No PT INR APTT Sodium 134 L Potassium 3.7 Chloride 91.6 L Carbon Dioxide 19 L Anion Gap 27 BUN 10 Creatinine 0.5 L Estimated GFR 10 BUN/Creatinine Ratio 20 Glucose 159 H Lactic Acid Calcium 9.5 Total Bilirubin 0.90 AST 69 H ALT 50 Alkaline Phosphatase 142 H Total Protein 8.2 Albumin 3.8 L Albumin/Globulin Ratio 0.9 Lipase 2528 H HCG, Qual Urine Color Urine Turbidity Urine pH Ur Specific [place] Urine Protein Urine Glucose (UA) Urine Ketones Urine Blood Urine Nitrite Urine Bilirubin Urine Urobilinogen Ur Leukocyte Esterase Urine WBC (Auto) Urine RBC (Auto) U Epithel Cells (Auto) Urine Mucus 06/17/18 06/18/18 06/18/18 23:07 00:02 02:25 WBC RBC Hgb Hct MCV MCH MCHC RDW Plt Count Add Manual Diff Total Counted Seg Neuts % (Manual) Band Neutrophils % Lymphocytes % (Manual) Reactive Lymphs % (Man) Monocytes % (Manual) Eosinophils % (Manual) Basophils % (Manual) Metamyelocytes % Myelocytes % Promyelocytes % Blast Cells % Nucleated RBC % Seg Neutrophils # Man Band Neutrophils # Lymphocytes # (Manual) Abs React Lymphs (Man) Monocytes # (Manual) Eosinophils # (Manual) Basophils # (Manual) Metamyelocytes # Myelocytes # Promyelocytes # Blast Cells # WBC Morphology Hypersegmented Neuts Hyposegmented Neuts Hypogranular Neuts Smudge Cells Toxic Granulation Toxic Vacuolation Dohle Bodies Pelger-Huet Anomaly Reuben Rods Platelet Estimate Clumped Platelets Plt Clumps, EDTA Large Platelets Giant Platelets Platelet Satelliting Plt Morphology Comment RBC Morphology Dimorphic RBCs Polychromasia Hypochromasia Poikilocytosis Anisocytosis Microcytosis Macrocytosis Spherocytes Pappenheimer Bodies Sickle Cells Target Cells Tear Drop Cells Ovalocytes Helmet Cells [place] Bodies [place] Rings [place] Cells Bite Cells Crenated Cell Elliptocytes Acanthocytes (Spur) Rouleaux Hemoglobin C Crystals Schistocytes Malaria parasites Jay Bodies Hem Pathologist Commnt PT 13.2 INR 0.95 APTT 24.9 Sodium Potassium Chloride Carbon Dioxide Anion Gap BUN Creatinine Estimated GFR BUN/Creatinine Ratio Glucose Lactic Acid 1.70 Calcium Total Bilirubin AST ALT Alkaline Phosphatase Total Protein Albumin Albumin/Globulin Ratio Lipase HCG, Qual Negative Urine Color Urine Turbidity Urine pH Ur Specific [place] Urine Protein Urine Glucose (UA) Urine Ketones Urine Blood Urine Nitrite Urine Bilirubin Urine Urobilinogen Ur Leukocyte Esterase Urine WBC (Auto) Urine RBC (Auto) U Epithel Cells (Auto) Urine Mucus 06/18/18 06/18/18 06/18/18 05:29 06:27 06:28 WBC RBC Hgb 13.1 Hct 38.8 MCV MCH MCHC RDW Plt Count Add Manual Diff Total Counted Seg Neuts % (Manual) Band Neutrophils % Lymphocytes % (Manual) Reactive Lymphs % (Man) Monocytes % (Manual) Eosinophils % (Manual) Basophils % (Manual) Metamyelocytes % Myelocytes % Promyelocytes % Blast Cells % Nucleated RBC % Seg Neutrophils # Man Band Neutrophils # Lymphocytes # (Manual) Abs React Lymphs (Man) Monocytes # (Manual) Eosinophils # (Manual) Basophils # (Manual) Metamyelocytes # Myelocytes # Promyelocytes # Blast Cells # WBC Morphology Hypersegmented Neuts Hyposegmented Neuts Hypogranular Neuts Smudge Cells Toxic Granulation Toxic Vacuolation Dohle Bodies Pelger-Huet Anomaly Reuben Rods Platelet Estimate Clumped Platelets Plt Clumps, EDTA Large Platelets Giant Platelets Platelet Satelliting Plt Morphology Comment RBC Morphology Dimorphic RBCs Polychromasia Hypochromasia Poikilocytosis Anisocytosis Microcytosis Macrocytosis Spherocytes Pappenheimer Bodies Sickle Cells Target Cells Tear Drop Cells Ovalocytes Helmet Cells [place] Bodies [place] Rings [place] Cells Bite Cells Crenated Cell Elliptocytes Acanthocytes (Spur) Rouleaux Hemoglobin C Crystals Schistocytes Malaria parasites Jay Bodies Hem Pathologist Commnt PT INR APTT Sodium Potassium Chloride Carbon Dioxide Anion Gap BUN Creatinine Estimated GFR BUN/Creatinine Ratio Glucose Lactic Acid Calcium Total Bilirubin AST ALT Alkaline Phosphatase Total Protein Albumin Albumin/Globulin Ratio Lipase 2051 H HCG, Qual Urine Color Yellow Urine Turbidity Clear Urine pH 6.0 Ur Specific [place] 1.060 H Urine Protein 30 mg/dl Urine Glucose (UA) 50 Urine Ketones 80 Urine Blood Sm Urine Nitrite Neg Urine Bilirubin Neg Urine Urobilinogen < 2.0 Ur Leukocyte Esterase Neg Urine WBC (Auto) 2.0 Urine RBC (Auto) 4.0 U Epithel Cells (Auto) 7.0 Urine Mucus Few 06/18/18 06/18/18 09:57 14:34 WBC RBC Hgb 12.8 12.9 Hct 37.4 37.7 MCV MCH MCHC RDW Plt Count Add Manual Diff Total Counted Seg Neuts % (Manual) Band Neutrophils % Lymphocytes % (Manual) Reactive Lymphs % (Man) Monocytes % (Manual) Eosinophils % (Manual) Basophils % (Manual) Metamyelocytes % Myelocytes % Promyelocytes % Blast Cells % Nucleated RBC % Seg Neutrophils # Man Band Neutrophils # Lymphocytes # (Manual) Abs React Lymphs (Man) Monocytes # (Manual) Eosinophils # (Manual) Basophils # (Manual) Metamyelocytes # Myelocytes # Promyelocytes # Blast Cells # WBC Morphology Hypersegmented Neuts Hyposegmented Neuts Hypogranular Neuts Smudge Cells Toxic Granulation Toxic Vacuolation Dohle Bodies Pelger-Huet Anomaly Reuben Rods Platelet Estimate Clumped Platelets Plt Clumps, EDTA Large Platelets Giant Platelets Platelet Satelliting Plt Morphology Comment RBC Morphology Dimorphic RBCs Polychromasia Hypochromasia Poikilocytosis Anisocytosis Microcytosis Macrocytosis Spherocytes Pappenheimer Bodies Sickle Cells Target Cells Tear Drop Cells Ovalocytes Helmet Cells [place] Bodies [place] Rings Agnieszka Cells Bite Cells Crenated Cell Elliptocytes Acanthocytes (Spur) Rouleaux Hemoglobin C Crystals Schistocytes Malaria parasites Jay Bodies Hem Pathologist Commnt PT INR APTT Sodium Potassium Chloride Carbon Dioxide Anion Gap BUN Creatinine Estimated GFR BUN/Creatinine Ratio Glucose Lactic Acid Calcium Total Bilirubin AST ALT Alkaline Phosphatase Total Protein Albumin Albumin/Globulin Ratio Lipase HCG, Qual Urine Color Urine Turbidity Urine pH Ur Specific [place] Urine Protein Urine Glucose (UA) Urine Ketones Urine Blood Urine Nitrite Urine Bilirubin Urine Urobilinogen Ur Leukocyte Esterase Urine WBC (Auto) Urine RBC (Auto) U Epithel Cells (Auto) Urine Mucus Assessment and Plan Pt seen and examined. Agree with note as above. Discussed importance of alcohol cessation in detail with pt who expressed understanding. No signs of active bleeding and H/h has remained stable. further management as above.
[2018-06-18 14:45] LABS: Hematocrit 37.7 % (30.3-42.9); Hemoglobin 12.9 gm/dl (10.1-14.3)
[2018-06-18] MEDS: NACL 0.9% 1000 ML 1,000 ML IV SCH (17:25)
[2018-06-19] MEDS: DILAUDID IV PRN ×4 (01:06→22:25)
[2018-06-19] MEDS: ZOSYN/NS 3.375GM/50ML 3.375 GM/50 ML BAG IV SCH ×3 (02:40→18:25)
[2018-06-19] MEDS: NACL 0.9% 1000 ML 1,000 ML IV SCH (03:00)
[2018-06-19 06:20] LABS: Basophils % (Auto) 0.3 % (0.0-1.8); Eosinophils # (Auto) 0.1 K/mm3 (0.0-0.4); Eosinophils % (Auto) 0.8 % (0.0-4.3); Hematocrit 33.8 % (30.3-42.9); Hemoglobin 11.4 gm/dl (10.1-14.3); Lymphocytes # (Auto) 1.6 K/mm3 (1.2-5.4); Lymphocytes % (Auto) 11.9 % (13.4-35.0); Mean Corpuscular HGB Conc 34 % (30-34); Mean Corpuscular Volume 103 fl (79-97); Monocytes # (Auto) 2.2 K/mm3 (0.0-0.8); Monocytes % (Auto) 15.7 % (0.0-7.3); Platelet Count 146 K/mm3 (140-440); Red Blood Count 3.28 M/mm3 (3.65-5.03); Red Cell Distribution Width 15.9 % (13.2-15.2)
[2018-06-19 06:40] LABS: Albumin 2.8 g/dL (3.9-5); Bilirubin,Direct 0.3 mg/dL (0-0.2); C-Reactive Protein 19.3 mg/dL (0.00-1.30)
[2018-06-19 06:42] LABS: BUN/Creatinine Ratio 8; Blood Urea Nitrogen 4 mg/dL (7-17); Calcium 7.2 mg/dL (8.4-10.2); Hemolysis Index 3
--- NOTE | 2018-06-19 09:41 | Gastroenterology Progress Note ---
Assessment and Plan 1.acute pancreatitis -afebrile -WBC 13.8-trending down -lipase 364-trending down -LFTs-now trended down to WNL -CRP 19.30 -triglyceride-60 -abd CT showed pancreatitis (no evidence of necrosis or pseudocyst) -abd U/S showed hepatic steatosis, sludge in gallbaldder (no acute cholecystitis), and enlarged CBD (7.8mm; stone not excluded) -surgery following -etiology-most likely 2/2 ETOH -MRCP pending today to for further evaluation of u/s results (enlarged CBD; r/o choledocholithiasis) -keep NPO for now -continue to trend labs and supportive care with IVF, pain medications, antiemetics, empiric antibiotics, etc. -alcohol cessation discussed/encouraged with patient-monitor for signs of withdrawal -electrolyte management per primary team 2.hematemesis 3.H/o PUD -plt and INR WNL -H/H WNL- stable -continue to monitor H/H and transfuse as needed -no active signs of bleeding overnight or this am -last EGD 06/29/2015 by showed small hiatal hernia, non-bleeding gastric ulcer, and gastritis (bx result positive for H.pylori; s/p treatment) -etiology-likely 2/2 M-W tear vs esophagitis vs other -no plan for EGD at this time given no clinical evidence of significant GI bleeding -continue PPI -avoid NSAIDs -continue supporitive care -will follow Subjective Date of service: 06/19/18 Principal diagnosis: hematemesis Interval history: Patient w/o acute distress. Reports continued upper abd pain pain. No N/V or active signs of bleeding overnight or this am. Objective - Constitutional Vitals: Temp Pulse Resp BP Pulse Ox 98.7 F 92 H 20 115/79 98 06/19/18 07:29 06/19/18 07:29 06/19/18 07:29 06/19/18 07:29 06/19/18 07:29 General appearance: no acute distress - EENT Eyes: PERRL, EOM intact ENT: hearing intact - Respiratory Respiratory: bilateral: CTA - Cardiovascular Rhythm: regular - Gastrointestinal General gastrointestinal: Present: soft, tender (RUQ/epigastric/LUQ), non- distended, normal bowel sounds - Neurologic Neurological: alert and oriented x3 - Labs CBC & Chem 7: 06/19/18 05:55 06/19/18 05:55 Labs: Laboratory Results - last 24 hr 06/18/18 06/18/18 06/19/18 09:57 14:34 05:55 WBC 13.8 H RBC 3.28 L Hgb 12.8 12.9 11.4 Hct 37.4 37.7 33.8 MCV 103 H MCH 35 H MCHC 34 RDW 15.9 H Plt Count 146 Lymph % (Auto) 11.9 L [place] % (Auto) 15.7 H Eos % (Auto) 0.8 Baso % (Auto) 0.3 Lymph # 1.6 [place] # 2.2 H Eos # 0.1 Baso # 0.0 Seg Neutrophils % 71.3 H Seg Neutrophils # 9.8 H Sodium Potassium Chloride Carbon Dioxide Anion Gap BUN Creatinine Estimated GFR BUN/Creatinine Ratio Glucose Calcium Total Bilirubin Direct Bilirubin Indirect Bilirubin AST ALT Alkaline Phosphatase C-Reactive Protein Total Protein Albumin Albumin/Globulin Ratio Triglycerides Lipase 06/19/18 06/19/18 05:55 05:55 WBC RBC Hgb Hct MCV MCH MCHC RDW Plt Count Lymph % (Auto) [place] % (Auto) Eos % (Auto) Baso % (Auto) Lymph # [place] # Eos # Baso # Seg Neutrophils % Seg Neutrophils # Sodium 142 D Potassium 3.0 L Chloride 105.4 Carbon Dioxide 23 Anion Gap 17 BUN 4 L Creatinine 0.5 L Estimated GFR > 60 BUN/Creatinine Ratio 8 Glucose 100 Calcium 7.2 L D Total Bilirubin 0.70 Direct Bilirubin 0.3 H Indirect Bilirubin 0.4 AST 27 ALT 24 Alkaline Phosphatase 96 C-Reactive Protein 19.30 H Total Protein 5.9 L D Albumin 2.8 L Albumin/Globulin Ratio 0.9 Triglycerides 60 Lipase 364 H
[2018-06-19] MEDS: PROTONIX IV SCH (10:27)
[2018-06-19] MEDS: SODIUM CHLORIDE FLUSH SYRINGE 10 ML IV SCH ×2 (10:41→22:26)
--- NOTE | 2018-06-19 14:09 | Magnetic Resonance Report ---
MR ABDOMEN MRCP HISTORY: Pancreatitis, enlarged common bile duct. TECHNIQUE: Multiple T1 and T2-weighted images were obtained with and without fat suppression. Thin and thick slab MRCP images. Radial MRCP images. COMPARISON: Ultrasound right upper quadrant and CT abdomen pelvis with contrast performed 06/18/18. FINDINGS: Small bilateral layering pleural effusions have developed, left slightly greater than right. There is moderate to severe diffuse fatty infiltration of the liver. No enlargement, surface nodularity or mass. There is moderate sludge in the gallbladder. No evidence for gallstones, abnormal dilatation, gallbladder wall thickening or pericholecystic fluid. The MRCP images demonstrate a normal-appearing biliary tree and pancreatic duct. No choledocholithiasis is appreciated. The CBD measures 5 mm. The pancreas is diffusely edematous with mild surrounding fat stranding and trace fluid. There is no obvious mass or pseudocyst on noncontrast MR. The kidneys, adrenal glands, spleen and visualized bowel loops are unremarkable. No evidence for abscess or bulky adenopathy. Normal bone marrow signal in the visualized osseous structures. Trace abdominal ascites is identified. The aorta is normal caliber. IMPRESSION: Findings consistent with acute pancreatitis. No obvious pancreatic mass, pseudocyst or choledocholithiasis. Moderate sludge in the gallbladder. Diffuse fatty infiltration of the liver parenchyma. Small pleural effusions and trace ascites.
--- NOTE | 2018-06-19 14:59 | Event Note ---
Date: 06/19/18 MRCP showed acute pancreatitis but no choledocholithiasis. Okay to start on trial of clear liquids as tolerated.
--- NOTE | 2018-06-19 15:38 | History and Physical Report ---
History of Present Illness Date of admission: 06/18/18 03:17 Past History Past Medical History: other (PUD, pancreatitis) Past Surgical History: tonsillectomy, Other (EGD 2016) Social history: smoking (1 ppd), alcohol abuse (at least 2 shots a day). roxie es: IV drug use Family history: hypertension Medications and Allergies Allergies Allergy/AdvReac Type Severity Reaction Status Date / Time No Known Allergies Allergy Verified 05/23/15 22:19 Home Medications Medication Instructions Recorded Confirmed Last Taken Type No Known Home Medications [No 06/18/18 06/18/18 Unknown History Reported Home Medications] Active Meds: Active Medications Acetaminophen (Tylenol) 650 mg PO Q4H PRN PRN Reason: Pain MILD(1-3)/Fever >100.5/NARAYANAN Guaifenesin (Guaifenesin Dm Syrup) 10 ml PO Q6H PRN PRN Reason: Cough Last Admin: 06/19/18 10:27 Dose: 10 ml Documented by: Hydromorphone HCl (Dilaudid) 1 mg IV Q4H PRN PRN Reason: Pain , Severe (7-10) Last Admin: 06/19/18 10:26 Dose: 1 mg Documented by: Sodium Chloride (Nacl 0.9% 1000 Ml) 1,000 mls @ 125 mls/hr IV DIRECT MEENA Last Admin: 06/19/18 03:00 Dose: 125 mls/hr Documented by: Piperacillin Sod/Tazobactam Sod (Zosyn/Ns 3.375gm/50ml) 3.375 gm in 50 mls @ 100 mls/hr IV Q8H MEENA Last Admin: 06/19/18 02:40 Dose: 100 mls/hr Documented by: Dextrose/Sodium Chloride (D5/0.45ns) 1,000 mls @ 75 mls/hr IV DIRECT MEENA Potassium Chloride (Kcl 10meq/100ml) 10 meq in 100 mls @ 100 mls/hr IV Q1H MEENA Stop: 06/19/18 19:59 Lorazepam (Ativan) 2 mg IV Q1HR PRN PRN Reason: CIWA-Ar 8-15 Lorazepam (Ativan) 4 mg IV Q1HR PRN PRN Reason: CIWA-Ar 16-25 Ondansetron HCl (Zofran) 4 mg IV Q4H PRN PRN Reason: Nausea And Vomiting Pantoprazole Sodium (Protonix) 40 mg IV DAILY MEENA Last Admin: 06/19/18 10:27 Dose: 40 mg Documented by: Potassium Chloride (K-Dur) 40 meq PO QDAY MEENA Stop: 06/22/18 15:59 Sodium Chloride (Sodium Chloride Flush Syringe 10 Ml) 10 ml IV BID MEENA Last Admin: 06/19/18 10:41 Dose: 10 ml Documented by: Sodium Chloride (Sodium Chloride Flush Syringe 10 Ml) 10 ml IV PRN PRN PRN Reason: LINE FLUSH Exam - Constitutional Vitals: Temp Pulse Resp BP Pulse Ox 98.7 F 92 H 20 115/79 98 06/19/18 07:29 06/19/18 07:29 06/19/18 07:29 06/19/18 07:29 06/19/18 07:29 Results - Labs CBC & Chem 7: 06/19/18 05:55 06/19/18 05:55 Labs: Laboratory Last Values WBC 13.8 K/mm3 (4.5-11.0) H 06/19/18 05:55 RBC 3.28 M/mm3 (3.65-5.03) L 06/19/18 05:55 Hgb 11.4 gm/dl (10.1-14.3) 06/19/18 05:55 Hct 33.8 % (30.3-42.9) 06/19/18 05:55 MCV 103 fl (79-97) H 06/19/18 05:55 MCH 35 pg (28-32) H 06/19/18 05:55 MCHC 34 % (30-34) 06/19/18 05:55 RDW 15.9 % (13.2-15.2) H 06/19/18 05:55 Plt Count 146 K/mm3 (140-440) 06/19/18 05:55 Lymph % (Auto) 11.9 % (13.4-35.0) L 06/19/18 05:55 [place] % (Auto) 15.7 % (0.0-7.3) H 06/19/18 05:55 Eos % (Auto) 0.8 % (0.0-4.3) 06/19/18 05:55 Baso % (Auto) 0.3 % (0.0-1.8) 06/19/18 05:55 Lymph # 1.6 K/mm3 (1.2-5.4) 06/19/18 05:55 [place] # 2.2 K/mm3 (0.0-0.8) H 06/19/18 05:55 Eos # 0.1 K/mm3 (0.0-0.4) 06/19/18 05:55 Baso # 0.0 K/mm3 (0.0-0.1) 06/19/18 05:55 Add Manual Diff Complete 06/17/18 23:07 Total Counted 100 06/17/18 23:07 Seg Neutrophils % 71.3 % (40.0-70.0) H 06/19/18 05:55 Seg Neuts % (Manual) 95.0 % (40.0-70.0) H 06/17/18 23:07 Band Neutrophils % 0 % 06/17/18 23:07 Lymphocytes % (Manual) 1.0 % (13.4-35.0) L 06/17/18 23:07 Reactive Lymphs % (Man) 0 % 06/17/18 23:07 Monocytes % (Manual) 4.0 % (0.0-7.3) 06/17/18 23:07 Eosinophils % (Manual) 0 % (0.0-4.3) 06/17/18 23:07 Basophils % (Manual) 0 % (0.0-1.8) 06/17/18 23:07 Metamyelocytes % 0 % 06/17/18 23:07 Myelocytes % 0 % 06/17/18 23:07 Promyelocytes % 0 % 06/17/18 23:07 Blast Cells % 0 % 06/17/18 23:07 Nucleated RBC % Not Reportable 06/17/18 23:07 Seg Neutrophils # 9.8 K/mm3 (1.8-7.7) H 06/19/18 05:55 Seg Neutrophils # Man 23.2 K/mm3 (1.8-7.7) H 06/17/18 23:07 Band Neutrophils # 0.0 K/mm3 06/17/18 23:07 Lymphocytes # (Manual) 0.2 K/mm3 (1.2-5.4) L 06/17/18 23:07 Abs React Lymphs (Man) 0.0 K/mm3 06/17/18 23:07 Monocytes # (Manual) 1.0 K/mm3 (0.0-0.8) H 06/17/18 23:07 Eosinophils # (Manual) 0.0 K/mm3 (0.0-0.4) 06/17/18 23:07 Basophils # (Manual) 0.0 K/mm3 (0.0-0.1) 06/17/18 23:07 Metamyelocytes # 0.0 K/mm3 06/17/18 23:07 Myelocytes # 0.0 K/mm3 06/17/18 23:07 Promyelocytes # 0.0 K/mm3 06/17/18 23:07 Blast Cells # 0.0 K/mm3 06/17/18 23:07 WBC Morphology Not Reportable 06/17/18 23:07 Hypersegmented Neuts Not Reportable 06/17/18 23:07 Hyposegmented Neuts Not Reportable 06/17/18 23:07 Hypogranular Neuts Not Reportable 06/17/18 23:07 Smudge Cells Not Reportable 06/17/18 23:07 Toxic Granulation Not Reportable 06/17/18 23:07 Toxic Vacuolation Not Reportable 06/17/18 23:07 Dohle Bodies Not Reportable 06/17/18 23:07 Pelger-Huet Anomaly Not Reportable 06/17/18 23:07 Reuben Rods Not Reportable 06/17/18 23:07 Platelet Estimate Consistent w auto 06/17/18 23:07 Clumped Platelets Not Reportable 06/17/18 23:07 Plt Clumps, EDTA Not Reportable 06/17/18 23:07 Large Platelets 1+ 06/17/18 23:07 Giant Platelets Not Reportable 06/17/18 23:07 Platelet Satelliting Not Reportable 06/17/18 23:07 Plt Morphology Comment Not Reportable 06/17/18 23:07 RBC Morphology Normal 06/17/18 23:07 Dimorphic RBCs Not Reportable 06/17/18 23:07 Polychromasia Not Reportable 06/17/18 23:07 Hypochromasia Not Reportable 06/17/18 23:07 Poikilocytosis Not Reportable 06/17/18 23:07 Anisocytosis Not Reportable 06/17/18 23:07 Microcytosis Not Reportable 06/17/18 23:07 Macrocytosis Not Reportable 06/17/18 23:07 Spherocytes Not Reportable 06/17/18 23:07 Pappenheimer Bodies Not Reportable 06/17/18 23:07 Sickle Cells Not Reportable 06/17/18 23:07 Target Cells Not Reportable 06/17/18 23:07 Tear Drop Cells Not Reportable 06/17/18 23:07 Ovalocytes Not Reportable 06/17/18 23:07 Helmet Cells Not Reportable 06/17/18 23:07 Dale-Jem[place] Bodies Not Reportable 06/17/18 23:07 [place] Rings Not Reportable 06/17/18 23:07 Agnieszka Cells Not Reportable 06/17/18 23:07 Bite Cells Not Reportable 06/17/18 23:07 Crenated Cell Not Reportable 06/17/18 23:07 Elliptocytes Not Reportable 06/17/18 23:07 Acanthocytes (Spur) Not Reportable 06/17/18 23:07 Rouleaux Not Reportable 06/17/18 23:07 Hemoglobin C Crystals Not Reportable 06/17/18 23:07 Schistocytes Not Reportable 06/17/18 23:07 Malaria parasites Not Reportable 06/17/18 23:07 Jay Bodies Not Reportable 06/17/18 23:07 Hem Pathologist Commnt No 06/17/18 23:07 PT 13.2 Sec. (12.2-14.9) 06/18/18 00:02 INR 0.95 (0.87-1.13) 06/18/18 00:02 APTT 24.9 Sec. (24.2-36.6) 06/18/18 00:02 Sodium 142 mmol/L (137-145) D 06/19/18 05:55 Potassium 3.0 mmol/L (3.6-5.0) L 06/19/18 05:55 Chloride 105.4 mmol/L (98-107) 06/19/18 05:55 Carbon Dioxide 23 mmol/L (22-30) 06/19/18 05:55 Anion Gap 17 mmol/L 06/19/18 05:55 BUN 4 mg/dL (7-17) L 06/19/18 05:55 Creatinine 0.5 mg/dL (0.7-1.2) L 06/19/18 05:55 Estimated GFR > 60 ml/min 06/19/18 05:55 BUN/Creatinine Ratio 8 % 06/19/18 05:55 Glucose 100 mg/dL (65-100) 06/19/18 05:55 Lactic Acid 1.70 mmol/L (0.7-2.0) 06/18/18 02:25 Calcium 7.2 mg/dL (8.4-10.2) L D 06/19/18 05:55 Total Bilirubin 0.70 mg/dL (0.1-1.2) 06/19/18 05:55 Direct Bilirubin 0.3 mg/dL (0-0.2) H 06/19/18 05:55 Indirect Bilirubin 0.4 mg/dL 06/19/18 05:55 AST 27 units/L (5-40) 06/19/18 05:55 ALT 24 units/L (7-56) 06/19/18 05:55 Alkaline Phosphatase 96 units/L (35-129) 06/19/18 05:55 C-Reactive Protein 19.30 mg/dL (0.00-1.30) H 06/19/18 05:55 Total Protein 5.9 g/dL (6.3-8.2) L D 06/19/18 05:55 Albumin 2.8 g/dL (3.9-5) L 06/19/18 05:55 Albumin/Globulin Ratio 0.9 % 06/19/18 05:55 Triglycerides 60 mg/dL (2-149) 06/19/18 05:55 Lipase 364 units/L (13-60) H 06/19/18 05:55 HCG, Qual Negative (Negative) 06/17/18 23:07 Urine Color Yellow (Yellow) 06/18/18 06:27 Urine Turbidity Clear (Clear) 06/18/18 06:27 Urine pH 6.0 (5.0-7.0) 06/18/18 06:27 Ur Specific [place] 1.060 (1.003-1.030) H 06/18/18 06:27 Urine Protein 30 mg/dl mg/dL (Negative) 06/18/18 06:27 Urine Glucose (UA) 50 mg/dL (Negative) 06/18/18 06:27 Urine Ketones 80 mg/dL (Negative) 06/18/18 06:27 Urine Blood Sm (Negative) 06/18/18 06:27 Urine Nitrite Neg (Negative) 06/18/18 06:27 Urine Bilirubin Neg (Negative) 06/18/18 06:27 Urine Urobilinogen < 2.0 mg/dL (<2.0) 06/18/18 06:27 Ur Leukocyte Esterase Neg (Negative) 06/18/18 06:27 Urine WBC (Auto) 2.0 /HPF (0.0-6.0) 06/18/18 06:27 Urine RBC (Auto) 4.0 /HPF (0.0-6.0) 06/18/18 06:27 U Epithel Cells (Auto) 7.0 /HPF (0-13.0) 06/18/18 06:27 Urine Mucus Few /HPF 06/18/18 06:27 Assessment and Plan Assessment and plan: Acute alcoholic pancreatitis -Improving -pt started on clear liquid diet, to be advanced as tolerated -Lipase level improved Abnormal LFT -Likely secondary to above -Levels trended down CBD dilatation per imaging -MRCP showed acute pancreatitis without complications or choledocholithiasis Hematemesis -etiology-likely 2/2 M-W tear vs esophagitis -H/H stable, will monitor -last EGD 06/29/2015 by showed small hiatal hernia, non-bleeding gastric ulcer, and gastritis (bx result positive for H.pylori; s/p treatment) -No further investigative testing per GI Leukocytosis -Probably reactive -No evidence of acute infection -Off antibiotic, wbc Level improving Hypokalemia -Repletion, will monitor level -We will check magnesium level Alcohol abuse -Patient counseled on cessation -On alcohol withdrawal prophylaxis Disposition: For discharge when medically stable
--- NOTE | 2018-06-19 15:43 | Progress Note ---
Assessment and Plan Assessment and plan: Acute alcoholic pancreatitis -Improving -Patient started on clear liquid diet to be advanced as tolerated Transaminitis -Likely secondary to above, resolved CBD per imaging -MRCP showed acute without complication or choledocholithiasis Hematemesis -etiology-likely 2/2 M-W tear vs esophagitis -H/H stable -last EGD 06/29/2015 by showed small hiatal hernia, non-bleeding gastric ulcer, and gastritis (bx result positive for H.pylori; s/p treatment) -no plan for EGD at this time per GI given no clinical evidence of significant GI bleeding -continue PPI -avoid NSAIDs Hypokalemia -On repletion, will monitor level -We will check magnesium level Alcohol abuse -patient counseled on cessation -On alcohol withdrawal prophylaxis Disposition: For discharge when patient is able to tolerate oral diet History Interval history: Patient continues to complain of epigastric abdominal pain Hospitalist Physical - Constitutional Vitals: Temp Pulse Resp BP Pulse Ox 98.7 F 92 H 20 115/79 98 06/19/18 07:29 06/19/18 07:29 06/19/18 07:29 06/19/18 07:29 06/19/18 07:29 General appearance: Present: no acute distress - EENT Eyes: Present: PERRL, EOM intact ENT: hearing intact, clear oral mucosa - Neck Neck: Present: supple - Respiratory Respiratory effort: normal Respiratory: bilateral: CTA - Cardiovascular Rhythm: regular Heart Sounds: Present: S1 & S2 - Extremities Extremities: No edema - Abdominal General gastrointestinal: soft, tender (epigastric), normal bowel sounds - Integumentary Integumentary: Present: clear, warm, dry - Neurologic Neurologic: CNII-XII intact Results - Labs CBC & Chem 7: 06/19/18 05:55 06/19/18 05:55 Labs: Laboratory Last Values WBC 13.8 K/mm3 (4.5-11.0) H 06/19/18 05:55 RBC 3.28 M/mm3 (3.65-5.03) L 06/19/18 05:55 Hgb 11.4 gm/dl (10.1-14.3) 06/19/18 05:55 Hct 33.8 % (30.3-42.9) 06/19/18 05:55 MCV 103 fl (79-97) H 06/19/18 05:55 MCH 35 pg (28-32) H 06/19/18 05:55 MCHC 34 % (30-34) 06/19/18 05:55 RDW 15.9 % (13.2-15.2) H 06/19/18 05:55 Plt Count 146 K/mm3 (140-440) 06/19/18 05:55 Lymph % (Auto) 11.9 % (13.4-35.0) L 06/19/18 05:55 [place] % (Auto) 15.7 % (0.0-7.3) H 06/19/18 05:55 Eos % (Auto) 0.8 % (0.0-4.3) 06/19/18 05:55 Baso % (Auto) 0.3 % (0.0-1.8) 06/19/18 05:55 Lymph # 1.6 K/mm3 (1.2-5.4) 06/19/18 05:55 [place] # 2.2 K/mm3 (0.0-0.8) H 06/19/18 05:55 Eos # 0.1 K/mm3 (0.0-0.4) 06/19/18 05:55 Baso # 0.0 K/mm3 (0.0-0.1) 06/19/18 05:55 Add Manual Diff Complete 06/17/18 23:07 Total Counted 100 06/17/18 23:07 Seg Neutrophils % 71.3 % (40.0-70.0) H 06/19/18 05:55 Seg Neuts % (Manual) 95.0 % (40.0-70.0) H 06/17/18 23:07 Band Neutrophils % 0 % 06/17/18 23:07 Lymphocytes % (Manual) 1.0 % (13.4-35.0) L 06/17/18 23:07 Reactive Lymphs % (Man) 0 % 06/17/18 23:07 Monocytes % (Manual) 4.0 % (0.0-7.3) 06/17/18 23:07 Eosinophils % (Manual) 0 % (0.0-4.3) 06/17/18 23:07 Basophils % (Manual) 0 % (0.0-1.8) 06/17/18 23:07 Metamyelocytes % 0 % 06/17/18 23:07 Myelocytes % 0 % 06/17/18 23:07 Promyelocytes % 0 % 06/17/18 23:07 Blast Cells % 0 % 06/17/18 23:07 Nucleated RBC % Not Reportable 06/17/18 23:07 Seg Neutrophils # 9.8 K/mm3 (1.8-7.7) H 06/19/18 05:55 Seg Neutrophils # Man 23.2 K/mm3 (1.8-7.7) H 06/17/18 23:07 Band Neutrophils # 0.0 K/mm3 06/17/18 23:07 Lymphocytes # (Manual) 0.2 K/mm3 (1.2-5.4) L 06/17/18 23:07 Abs React Lymphs (Man) 0.0 K/mm3 06/17/18 23:07 Monocytes # (Manual) 1.0 K/mm3 (0.0-0.8) H 06/17/18 23:07 Eosinophils # (Manual) 0.0 K/mm3 (0.0-0.4) 06/17/18 23:07 Basophils # (Manual) 0.0 K/mm3 (0.0-0.1) 06/17/18 23:07 Metamyelocytes # 0.0 K/mm3 06/17/18 23:07 Myelocytes # 0.0 K/mm3 06/17/18 23:07 Promyelocytes # 0.0 K/mm3 06/17/18 23:07 Blast Cells # 0.0 K/mm3 06/17/18 23:07 WBC Morphology Not Reportable 06/17/18 23:07 Hypersegmented Neuts Not Reportable 06/17/18 23:07 Hyposegmented Neuts Not Reportable 06/17/18 23:07 Hypogranular Neuts Not Reportable 06/17/18 23:07 Smudge Cells Not Reportable 06/17/18 23:07 Toxic Granulation Not Reportable 06/17/18 23:07 Toxic Vacuolation Not Reportable 06/17/18 23:07 Dohle Bodies Not Reportable 06/17/18 23:07 Pelger-Huet Anomaly Not Reportable 06/17/18 23:07 Reuben Rods Not Reportable 06/17/18 23:07 Platelet Estimate Consistent w auto 06/17/18 23:07 Clumped Platelets Not Reportable 06/17/18 23:07 Plt Clumps, EDTA Not Reportable 06/17/18 23:07 Large Platelets 1+ 06/17/18 23:07 Giant Platelets Not Reportable 06/17/18 23:07 Platelet Satelliting Not Reportable 06/17/18 23:07 Plt Morphology Comment Not Reportable 06/17/18 23:07 RBC Morphology Normal 06/17/18 23:07 Dimorphic RBCs Not Reportable 06/17/18 23:07 Polychromasia Not Reportable 06/17/18 23:07 Hypochromasia Not Reportable 06/17/18 23:07 Poikilocytosis Not Reportable 06/17/18 23:07 Anisocytosis Not Reportable 06/17/18 23:07 Microcytosis Not Reportable 06/17/18 23:07 Macrocytosis Not Reportable 06/17/18 23:07 Spherocytes Not Reportable 06/17/18 23:07 Pappenheimer Bodies Not Reportable 06/17/18 23:07 Sickle Cells Not Reportable 06/17/18 23:07 Target Cells Not Reportable 06/17/18 23:07 Tear Drop Cells Not Reportable 06/17/18 23:07 Ovalocytes Not Reportable 06/17/18 23:07 Helmet Cells Not Reportable 06/17/18 23:07 [place] Bodies Not Reportable 06/17/18 23:07 [place] Rings Not Reportable 06/17/18 23:07 Agnieszka Cells Not Reportable 06/17/18 23:07 Bite Cells Not Reportable 06/17/18 23:07 Crenated Cell Not Reportable 06/17/18 23:07 Elliptocytes Not Reportable 06/17/18 23:07 Acanthocytes (Spur) Not Reportable 06/17/18 23:07 Rouleaux Not Reportable 06/17/18 23:07 Hemoglobin C Crystals Not Reportable 06/17/18 23:07 Schistocytes Not Reportable 06/17/18 23:07 Malaria parasites Not Reportable 06/17/18 23:07 Jay Bodies Not Reportable 06/17/18 23:07 Hem Pathologist Commnt No 06/17/18 23:07 PT 13.2 Sec. (12.2-14.9) 06/18/18 00:02 INR 0.95 (0.87-1.13) 06/18/18 00:02 APTT 24.9 Sec. (24.2-36.6) 06/18/18 00:02 Sodium 142 mmol/L (137-145) D 06/19/18 05:55 Potassium 3.0 mmol/L (3.6-5.0) L 06/19/18 05:55 Chloride 105.4 mmol/L (98-107) 06/19/18 05:55 Carbon Dioxide 23 mmol/L (22-30) 06/19/18 05:55 Anion Gap 17 mmol/L 06/19/18 05:55 BUN 4 mg/dL (7-17) L 06/19/18 05:55 Creatinine 0.5 mg/dL (0.7-1.2) L 06/19/18 05:55 Estimated GFR > 60 ml/min 06/19/18 05:55 BUN/Creatinine Ratio 8 % 06/19/18 05:55 Glucose 100 mg/dL (65-100) 06/19/18 05:55 Lactic Acid 1.70 mmol/L (0.7-2.0) 06/18/18 02:25 Calcium 7.2 mg/dL (8.4-10.2) L D 06/19/18 05:55 Total Bilirubin 0.70 mg/dL (0.1-1.2) 06/19/18 05:55 Direct Bilirubin 0.3 mg/dL (0-0.2) H 06/19/18 05:55 Indirect Bilirubin 0.4 mg/dL 06/19/18 05:55 AST 27 units/L (5-40) 06/19/18 05:55 ALT 24 units/L (7-56) 06/19/18 05:55 Alkaline Phosphatase 96 units/L (35-129) 06/19/18 05:55 C-Reactive Protein 19.30 mg/dL (0.00-1.30) H 06/19/18 05:55 Total Protein 5.9 g/dL (6.3-8.2) L D 06/19/18 05:55 Albumin 2.8 g/dL (3.9-5) L 06/19/18 05:55 Albumin/Globulin Ratio 0.9 % 06/19/18 05:55 Triglycerides 60 mg/dL (2-149) 06/19/18 05:55 Lipase 364 units/L (13-60) H 06/19/18 05:55 HCG, Qual Negative (Negative) 06/17/18 23:07 Urine Color Yellow (Yellow) 06/18/18 06:27 Urine Turbidity Clear (Clear) 06/18/18 06:27 Urine pH 6.0 (5.0-7.0) 06/18/18 06:27 Ur Specific [place] 1.060 (1.003-1.030) H 06/18/18 06:27 Urine Protein 30 mg/dl mg/dL (Negative) 06/18/18 06:27 Urine Glucose (UA) 50 mg/dL (Negative) 06/18/18 06:27 Urine Ketones 80 mg/dL (Negative) 06/18/18 06:27 Urine Blood Sm (Negative) 06/18/18 06:27 Urine Nitrite Neg (Negative) 06/18/18 06:27 Urine Bilirubin Neg (Negative) 06/18/18 06:27 Urine Urobilinogen < 2.0 mg/dL (<2.0) 06/18/18 06:27 Ur Leukocyte Esterase Neg (Negative) 06/18/18 06:27 Urine WBC (Auto) 2.0 /HPF (0.0-6.0) 06/18/18 06:27 Urine RBC (Auto) 4.0 /HPF (0.0-6.0) 06/18/18 06:27 U Epithel Cells (Auto) 7.0 /HPF (0-13.0) 06/18/18 06:27 Urine Mucus Few /HPF 06/18/18 06:27 Active Medications - Current Medications Current Medications: Generic Name Dose Route Start Last Admin Trade Name Freq PRN Reason Stop Dose Admin Acetaminophen 650 mg 06/18/18 03:17 Tylenol PO Q4H PRN Pain MILD(1-3)/Fever >100.5/NARAYANAN Guaifenesin 10 ml 06/18/18 18:53 06/19/18 10:27 Guaifenesin Dm Syrup PO 10 ml Q6H PRN Administration Cough Hydromorphone HCl 1 mg 06/18/18 13:00 06/19/18 10:26 Dilaudid IV 1 mg Q4H PRN Administration Pain , Severe (7-10) Piperacillin Sod/Tazobactam Sod 3.375 gm in 50 mls @ 100 mls/hr 06/18/18 10:00 06/19/18 02:40 Zosyn/Ns 3.375gm/50ml IV 100 mls/hr Q8H MEENA Administration Dextrose/Sodium Chloride 1,000 mls @ 75 mls/hr 06/19/18 16:00 D5/0.45ns IV DIRECT MEENA Potassium Chloride 10 meq in 100 mls @ 100 mls/hr 06/19/18 16:00 Kcl 10meq/100ml IV 06/19/18 19:59 Q1H MEENA Lorazepam 2 mg 06/18/18 03:31 Ativan IV Q1HR PRN CIWA-Ar 8-15 Lorazepam 4 mg 06/18/18 03:31 Ativan IV Q1HR PRN CIWA-Ar 16-25 Ondansetron HCl 4 mg 06/18/18 03:17 Zofran IV Q4H PRN Nausea And Vomiting Pantoprazole Sodium 40 mg 06/18/18 10:00 06/19/18 10:27 Protonix IV 40 mg DAILY MEENA Administration Potassium Chloride 40 meq 06/19/18 16:00 K-Dur PO 06/22/18 15:59 QDAY MEENA Sodium Chloride 10 ml 06/18/18 10:00 06/19/18 10:41 Sodium Chloride Flush Syringe 10 Ml IV 10 ml BID MEENA Administration Sodium Chloride 10 ml 06/18/18 03:17 Sodium Chloride Flush Syringe 10 Ml IV PRN PRN LINE FLUSH Nutrition/Malnutrition Assess - Dietary Evaluation Nutrition/Malnutrition Findings: Nutrition Notes Start: 06/19/18 09:02 Freq: Status: Active Protocol: Document 06/19/18 09:02 RD (Rec: 06/19/18 09:38 RD [email or web address]) Co-Sign 06/19/18 09:02 OL Nutrition Notes Need for Assessment generated from: Low BMI Initial or Follow up Brief Note Subjective/Other Information RD screen for Low BMI. BMI= 33 .0 ERROR.
[2018-06-19] MEDS ORDERED: D5/0.45NS 1,000 ML IV SCH (16:00)
[2018-06-19] MEDS: FOLVITE PO SCH (18:02)
[2018-06-19] MEDS: K-DUR PO SCH (18:02)
[2018-06-19] MEDS: VITAMIN B-1 PO SCH (18:03)
[2018-06-19] MEDS: KCL 10MEQ/100ML 10 MEQ/100 ML BAG IV SCH ×2 (19:22→22:20)
[2018-06-20] MEDS: KCL 10MEQ/100ML 10 MEQ/100 ML BAG IV SCH ×5 (01:13→22:10)
[2018-06-20] MEDS: DILAUDID IV PRN ×4 (06:06→22:20)
[2018-06-20] MEDS: ZOSYN/NS 3.375GM/50ML 3.375 GM/50 ML BAG IV SCH ×2 (06:09→11:28)
[2018-06-20 06:16] LABS: Hematocrit 32.3 % (30.3-42.9); Hemoglobin 10.9 gm/dl (10.1-14.3); Mean Corpuscular HGB Conc 34 % (30-34); Mean Corpuscular Volume 102 fl (79-97); Platelet Count 171 K/mm3 (140-440); Red Blood Count 3.16 M/mm3 (3.65-5.03); Red Cell Distribution Width 15.9 % (13.2-15.2)
[2018-06-20 06:36] LABS: Alanine Aminotransferase 22 units/L (7-56); Albumin 2.7 g/dL (3.9-5); BUN/Creatinine Ratio 10; Blood Urea Nitrogen 4 mg/dL (7-17); Calcium 7.4 mg/dL (8.4-10.2); Hemolysis Index 6
[2018-06-20 07:40] LABS: Basophils % (Manual) 0 % (0.0-1.8); Giant Platelets Rare; Large Platelets Few; Platelet Estimate Consistent w Auto; RBC Morphology Normal; Total Cells Counted 100
[2018-06-20 08:16] LABS: BUN/Creatinine Ratio 8; Blood Urea Nitrogen 3 mg/dL (7-17); Calcium 7.5 mg/dL (8.4-10.2); Hemolysis Index 2
--- NOTE | 2018-06-20 10:45 | Gastroenterology Progress Note ---
Assessment and Plan 1.acute pancreatitis -afebrile -WBC 12.6-trending down -lipase 132-trending down -LFTs-now trended down to WNL -CRP 14.00-trending down -triglyceride-60 -abd CT showed pancreatitis (no evidence of necrosis or pseudocyst) -abd U/S showed hepatic steatosis, sludge in gallbaldder (no acute cholecystitis), and enlarged CBD (7.8mm; stone not excluded) -MRCP showed acute pancreatitis but no choledocholithiasis or mass -etiology-most likely 2/2 ETOH -clinically, patient is stable. Reports feeling better today with abd pain improving. No N/v or signs of bleeding. Tolerating clears. -advance diet as tolerated -continue to trend labs and supportive care with IVF, pain medications, antiemetics, empiric antibiotics, etc. -alcohol cessation discussed/encouraged with patient-monitor for signs of withdrawal -electrolyte management per primary team -once tolerating PO intake, okay to be d/c per GI standpoint with f/u in clinic for further management 2.hematemesis 3.H/o PUD -plt and INR WNL -H/H WNL -continue to monitor H/H and transfuse as needed -no active signs of bleeding overnight or this am -last EGD 06/29/2015 by showed small hiatal hernia, non-bleeding gastric ulcer, and gastritis (bx result positive for H.pylori; s/p treatment) -etiology-likely 2/2 M-W tear vs esophagitis vs other -no plan for EGD at this time given no clinical evidence of significant GI bleeding -continue PPI -avoid NSAIDs -continue supporitive care Subjective Date of service: 06/20/18 Principal diagnosis: hematemesis Interval history: Patient sitting on the side of the bed this am w/o acute distress. Reports feeling better with abd pain improving. No N/v or signs of bleeding. Tolerating clears. Objective - Constitutional Vitals: Temp Pulse Resp BP Pulse Ox 98.3 F 82 18 127/86 98 06/20/18 09:00 06/20/18 09:06 06/20/18 09:06 06/20/18 09:00 06/20/18 09:06 General appearance: no acute distress - Respiratory Respiratory: bilateral: CTA - Cardiovascular Rhythm: regular - Gastrointestinal General gastrointestinal: Present: soft, tender (slight TTP in epigastric/RUQ/LUQ), non-distended, normal bowel sounds - Neurologic Neurological: alert and oriented x3 - Labs CBC & Chem 7: 06/20/18 05:34 06/20/18 07:45 Labs: Laboratory Results - last 24 hr 06/20/18 06/20/18 06/20/18 05:34 05:34 07:45 WBC 12.6 H RBC 3.16 L Hgb 10.9 Hct 32.3 MCV 102 H MCH 35 H MCHC 34 RDW 15.9 H Plt Count 171 [place] % (Auto) Maintainer Central Office Add Manual Diff Complete Total Counted 100 Seg Neuts % (Manual) 74.0 H Band Neutrophils % 0 Lymphocytes % (Manual) 11.0 L Reactive Lymphs % (Man) 0 Monocytes % (Manual) 14.0 H Eosinophils % (Manual) 1.0 Basophils % (Manual) 0 Metamyelocytes % 0 Myelocytes % 0 Promyelocytes % 0 Blast Cells % 0 Nucleated RBC % Not Reportable Seg Neutrophils # Man 9.3 H Band Neutrophils # 0.0 Lymphocytes # (Manual) 1.4 Abs React Lymphs (Man) 0.0 Monocytes # (Manual) 1.8 H Eosinophils # (Manual) 0.1 Basophils # (Manual) 0.0 Metamyelocytes # 0.0 Myelocytes # 0.0 Promyelocytes # 0.0 Blast Cells # 0.0 WBC Morphology Not Reportable Hypersegmented Neuts Not Reportable Hyposegmented Neuts Not Reportable Hypogranular Neuts Not Reportable Smudge Cells Not Reportable Toxic Granulation Not Reportable Toxic Vacuolation Not Reportable Dohle Bodies Not Reportable Pelger-Huet Anomaly Not Reportable Reuben Rods Not Reportable Platelet Estimate Consistent w auto Clumped Platelets Not Reportable Plt Clumps, EDTA Not Reportable Large Platelets Few Giant Platelets Rare Platelet Satelliting Not Reportable Plt Morphology Comment Not Reportable RBC Morphology Normal Dimorphic RBCs Not Reportable Polychromasia Not Reportable Hypochromasia Not Reportable Poikilocytosis Not Reportable Anisocytosis Not Reportable Microcytosis Not Reportable Macrocytosis Not Reportable Spherocytes Not Reportable Pappenheimer Bodies Not Reportable Sickle Cells Not Reportable Target Cells Not Reportable Tear Drop Cells Not Reportable Ovalocytes Not Reportable Helmet Cells Not Reportable [place] Bodies Not Reportable [place] Rings Not Reportable Agnieszka Cells Not Reportable Bite Cells Not Reportable Crenated Cell Not Reportable Elliptocytes Not Reportable Acanthocytes (Spur) Not Reportable Rouleaux Not Reportable Hemoglobin C Crystals Not Reportable Schistocytes Not Reportable Malaria parasites Not Reportable Jay Bodies Not Reportable Hem Pathologist Commnt No Sodium 138 139 Potassium 3.0 L 3.2 L Chloride 101.6 103.2 Carbon Dioxide 23 25 Anion Gap 16 14 BUN 4 L 3 L Creatinine 0.4 L 0.4 L Estimated GFR > 60 > 60 BUN/Creatinine Ratio 10 8 Glucose 108 H 122 H Calcium 7.4 L 7.5 L Magnesium 1.30 L Total Bilirubin 0.50 AST 26 ALT 22 Alkaline Phosphatase 96 C-Reactive Protein 14.00 H Total Protein 6.0 L Albumin 2.7 L Albumin/Globulin Ratio 0.8 Lipase 132 H
[2018-06-20] MEDS: PROTONIX PO SCH (10:55)
[2018-06-20] MEDS: FOLVITE PO SCH (10:55)
[2018-06-20] MEDS: THERAGRAN Tab PO SCH (10:55)
[2018-06-20] MEDS: VITAMIN B-1 PO SCH (10:55)
[2018-06-20] MEDS: K-DUR PO SCH (10:55)
[2018-06-20] MEDS: SODIUM CHLORIDE FLUSH SYRINGE 10 ML IV SCH ×2 (11:11→22:11)
--- NOTE | 2018-06-20 11:45 | Progress Note ---
Assessment and Plan - Patient Problems (1) Pancreatitis Current Visit: No Status: Inactive Qualifiers: Chronicity: acute Pancreatitis type: alcohol induced Acute pancreatitis complication: no infection or necrosis Qualified Code(s): K85.20 - Alcohol induced acute pancreatitis without necrosis or infection Plan to address problem: Pt stable. MRCP does not demonstrate obstruction or gallstones. Pt getting better. Strongly advised to stop alcohol. No surgical intervention recommended at this time. Advance diet as tolerated. Please call with questions. Time=10min Subjective Date of service: 06/20/18 Patient Reports: Positive: no new complaints, feels better, still having pain, pain is less Objective Vital Signs - 12hr 06/19/18 06/20/18 06/20/18 23:44 04:06 06:00 Temperature 98.8 F 99.1 F Pulse Rate 85 93 H Pulse Rate [ 82 Apical] Respiratory 18 18 18 Rate Blood Pressure 122/81 140/96 O2 Sat by Pulse 93 98 98 Oximetry 06/20/18 06/20/18 06/20/18 06:25 09:00 09:06 Temperature 98.3 F Pulse Rate 82 88 Pulse Rate [ 82 Apical] Respiratory 16 18 Rate Blood Pressure 127/86 O2 Sat by Pulse 98 98 Oximetry - General physical appearance no distress, no pain, other (looks better) - Respiratory normal expansion, normal respiratory effort - Abdomen soft, tender (much less than initial exam), not distended, not guarding, not rigid - Integumentary no rash, no growths, no abnormal pigmentation - Psychiatric oriented to time, oriented to person, oriented to place, speech is normal, memory intact - Labs 06/20/18 05:34 06/20/18 07:45 Diabetes panel 06/20/18 06/20/18 Range/Units 05:34 07:45 Sodium 138 139 (137-145) mmol/L Potassium 3.0 L 3.2 L (3.6-5.0) mmol/L Chloride 101.6 103.2 (98-107) mmol/L Carbon Dioxide 23 25 (22-30) mmol/L BUN 4 L 3 L (7-17) mg/dL Creatinine 0.4 L 0.4 L (0.7-1.2) mg/dL Glucose 108 H 122 H (65-100) mg/dL Calcium 7.4 L 7.5 L (8.4-10.2) mg/dL AST 26 (5-40) units/L ALT 22 (7-56) units/L Alkaline Phosphatase 96 (35-129) units/L Total Protein 6.0 L (6.3-8.2) g/dL Albumin 2.7 L (3.9-5) g/dL Calcium panel 06/20/18 06/20/18 Range/Units 05:34 07:45 Calcium 7.4 L 7.5 L (8.4-10.2) mg/dL Albumin 2.7 L (3.9-5) g/dL Pituitary panel 06/20/18 06/20/18 Range/Units 05:34 07:45 Sodium 138 139 (137-145) mmol/L Potassium 3.0 L 3.2 L (3.6-5.0) mmol/L Chloride 101.6 103.2 (98-107) mmol/L Carbon Dioxide 23 25 (22-30) mmol/L BUN 4 L 3 L (7-17) mg/dL Creatinine 0.4 L 0.4 L (0.7-1.2) mg/dL Glucose 108 H 122 H (65-100) mg/dL Calcium 7.4 L 7.5 L (8.4-10.2) mg/dL Adrenal panel 06/20/18 06/20/18 Range/Units 05:34 07:45 Sodium 138 139 (137-145) mmol/L Potassium 3.0 L 3.2 L (3.6-5.0) mmol/L Chloride 101.6 103.2 (98-107) mmol/L Carbon Dioxide 23 25 (22-30) mmol/L BUN 4 L 3 L (7-17) mg/dL Creatinine 0.4 L 0.4 L (0.7-1.2) mg/dL Glucose 108 H 122 H (65-100) mg/dL Calcium 7.4 L 7.5 L (8.4-10.2) mg/dL Total Bilirubin 0.50 (0.1-1.2) mg/dL AST 26 (5-40) units/L ALT 22 (7-56) units/L Alkaline Phosphatase 96 (35-129) units/L Total Protein 6.0 L (6.3-8.2) g/dL Albumin 2.7 L (3.9-5) g/dL
[2018-06-20] MEDS ORDERED: MAGNESIUM SULFATE 4GM/100ML 4 GM/100 ML BAG IV ONE (12:24)
--- NOTE | 2018-06-20 15:07 | Progress Note ---
Assessment and Plan Assessment and plan: Acute alcoholic pancreatitis -Improving -We'll advance diet as tolerated. Transaminitis -Likely secondary to above, resolved CBD per imaging -MRCP showed acute without complication or choledocholithiasis Possible colitis/ileitis per CT abd/pelvis -Antibiotic changed to oral Hematemesis -etiology-likely 2/2 M-W tear vs esophagitis -H/H stable -last EGD 06/29/2015 by showed small hiatal hernia, non-bleeding gastric ulcer, and gastritis (bx result positive for H.pylori; s/p treatment) -no plan for EGD at this time per GI given no clinical evidence of significant GI bleeding -continue PPI -avoid NSAIDs Hypokalemia/Hypomagnesemia -On repletion, will monitor level Alcohol abuse -patient counseled on cessation -On alcohol withdrawal prophylaxis Disposition: For discharge when medically stable. History Interval history: Patient is tolerating her liquid diet. She complained of nausea without vomiting. Hospitalist Physical - Constitutional Vitals: Temp Pulse Resp BP Pulse Ox 98.3 F 82 18 127/86 98 06/20/18 09:00 06/20/18 09:06 06/20/18 09:06 06/20/18 09:00 06/20/18 09:06 General appearance: Present: no acute distress - EENT Eyes: Present: PERRL, EOM intact ENT: hearing intact, clear oral mucosa - Neck Neck: Present: supple - Respiratory Respiratory effort: normal Respiratory: bilateral: CTA - Cardiovascular Rhythm: regular Heart Sounds: Present: S1 & S2 - Extremities Extremities: No edema - Abdominal General gastrointestinal: soft, non-tender, normal bowel sounds - Integumentary Integumentary: Present: clear, warm, dry - Neurologic Neurologic: CNII-XII intact Results - Labs CBC & Chem 7: 06/20/18 05:34 06/20/18 07:45 Labs: Laboratory Last Values WBC 12.6 K/mm3 (4.5-11.0) H 06/20/18 05:34 RBC 3.16 M/mm3 (3.65-5.03) L 06/20/18 05:34 Hgb 10.9 gm/dl (10.1-14.3) 06/20/18 05:34 Hct 32.3 % (30.3-42.9) 06/20/18 05:34 MCV 102 fl (79-97) H 06/20/18 05:34 MCH 35 pg (28-32) H 06/20/18 05:34 MCHC 34 % (30-34) 06/20/18 05:34 RDW 15.9 % (13.2-15.2) H 06/20/18 05:34 Plt Count 171 K/mm3 (140-440) 06/20/18 05:34 Lymph % (Auto) 11.9 % (13.4-35.0) L 06/19/18 05:55 [place] % (Auto) Agronomy Location Manager 06/20/18 05:34 Eos % (Auto) 0.8 % (0.0-4.3) 06/19/18 05:55 Baso % (Auto) 0.3 % (0.0-1.8) 06/19/18 05:55 Lymph # 1.6 K/mm3 (1.2-5.4) 06/19/18 05:55 [place] # 2.2 K/mm3 (0.0-0.8) H 06/19/18 05:55 Eos # 0.1 K/mm3 (0.0-0.4) 06/19/18 05:55 Baso # 0.0 K/mm3 (0.0-0.1) 06/19/18 05:55 Add Manual Diff Complete 06/20/18 05:34 Total Counted 100 06/20/18 05:34 Seg Neutrophils % 71.3 % (40.0-70.0) H 06/19/18 05:55 Seg Neuts % (Manual) 74.0 % (40.0-70.0) H 06/20/18 05:34 Band Neutrophils % 0 % 06/20/18 05:34 Lymphocytes % (Manual) 11.0 % (13.4-35.0) L 06/20/18 05:34 Reactive Lymphs % (Man) 0 % 06/20/18 05:34 Monocytes % (Manual) 14.0 % (0.0-7.3) H 06/20/18 05:34 Eosinophils % (Manual) 1.0 % (0.0-4.3) 06/20/18 05:34 Basophils % (Manual) 0 % (0.0-1.8) 06/20/18 05:34 Metamyelocytes % 0 % 06/20/18 05:34 Myelocytes % 0 % 06/20/18 05:34 Promyelocytes % 0 % 06/20/18 05:34 Blast Cells % 0 % 06/20/18 05:34 Nucleated RBC % Not Reportable 06/20/18 05:34 Seg Neutrophils # 9.8 K/mm3 (1.8-7.7) H 06/19/18 05:55 Seg Neutrophils # Man 9.3 K/mm3 (1.8-7.7) H 06/20/18 05:34 Band Neutrophils # 0.0 K/mm3 06/20/18 05:34 Lymphocytes # (Manual) 1.4 K/mm3 (1.2-5.4) 06/20/18 05:34 Abs React Lymphs (Man) 0.0 K/mm3 06/20/18 05:34 Monocytes # (Manual) 1.8 K/mm3 (0.0-0.8) H 06/20/18 05:34 Eosinophils # (Manual) 0.1 K/mm3 (0.0-0.4) 06/20/18 05:34 Basophils # (Manual) 0.0 K/mm3 (0.0-0.1) 06/20/18 05:34 Metamyelocytes # 0.0 K/mm3 06/20/18 05:34 Myelocytes # 0.0 K/mm3 06/20/18 05:34 Promyelocytes # 0.0 K/mm3 06/20/18 05:34 Blast Cells # 0.0 K/mm3 06/20/18 05:34 WBC Morphology Not Reportable 06/20/18 05:34 Hypersegmented Neuts Not Reportable 06/20/18 05:34 Hyposegmented Neuts Not Reportable 06/20/18 05:34 Hypogranular Neuts Not Reportable 06/20/18 05:34 Smudge Cells Not Reportable 06/20/18 05:34 Toxic Granulation Not Reportable 06/20/18 05:34 Toxic Vacuolation Not Reportable 06/20/18 05:34 Dohle Bodies Not Reportable 06/20/18 05:34 Pelger-Huet Anomaly Not Reportable 06/20/18 05:34 Reuben Rods Not Reportable 06/20/18 05:34 Platelet Estimate Consistent w auto 06/20/18 05:34 Clumped Platelets Not Reportable 06/20/18 05:34 Plt Clumps, EDTA Not Reportable 06/20/18 05:34 Large Platelets Few 06/20/18 05:34 Giant Platelets Rare 06/20/18 05:34 Platelet Satelliting Not Reportable 06/20/18 05:34 Plt Morphology Comment Not Reportable 06/20/18 05:34 RBC Morphology Normal 06/20/18 05:34 Dimorphic RBCs Not Reportable 06/20/18 05:34 Polychromasia Not Reportable 06/20/18 05:34 Hypochromasia Not Reportable 06/20/18 05:34 Poikilocytosis Not Reportable 06/20/18 05:34 Anisocytosis Not Reportable 06/20/18 05:34 Microcytosis Not Reportable 06/20/18 05:34 Macrocytosis Not Reportable 06/20/18 05:34 Spherocytes Not Reportable 06/20/18 05:34 Pappenheimer Bodies Not Reportable 06/20/18 05:34 Sickle Cells Not Reportable 06/20/18 05:34 Target Cells Not Reportable 06/20/18 05:34 Tear Drop Cells Not Reportable 06/20/18 05:34 Ovalocytes Not Reportable 06/20/18 05:34 Helmet Cells Not Reportable 06/20/18 05:34 [place] Bodies Not Reportable 06/20/18 05:34 [place] Rings Not Reportable 06/20/18 05:34 Agnieszka Cells Not Reportable 06/20/18 05:34 Bite Cells Not Reportable 06/20/18 05:34 Crenated Cell Not Reportable 06/20/18 05:34 Elliptocytes Not Reportable 06/20/18 05:34 Acanthocytes (Spur) Not Reportable 06/20/18 05:34 Rouleaux Not Reportable 06/20/18 05:34 Hemoglobin C Crystals Not Reportable 06/20/18 05:34 Schistocytes Not Reportable 06/20/18 05:34 Malaria parasites Not Reportable 06/20/18 05:34 Jay Bodies Not Reportable 06/20/18 05:34 Hem Pathologist Commnt No 06/20/18 05:34 PT 13.2 Sec. (12.2-14.9) 06/18/18 00:02 INR 0.95 (0.87-1.13) 06/18/18 00:02 APTT 24.9 Sec. (24.2-36.6) 06/18/18 00:02 Sodium 139 mmol/L (137-145) 06/20/18 07:45 Potassium 3.2 mmol/L (3.6-5.0) L 06/20/18 07:45 Chloride 103.2 mmol/L (98-107) 06/20/18 07:45 Carbon Dioxide 25 mmol/L (22-30) 06/20/18 07:45 Anion Gap 14 mmol/L 06/20/18 07:45 BUN 3 mg/dL (7-17) L 06/20/18 07:45 Creatinine 0.4 mg/dL (0.7-1.2) L 06/20/18 07:45 Estimated GFR > 60 ml/min 06/20/18 07:45 BUN/Creatinine Ratio 8 % 06/20/18 07:45 Glucose 122 mg/dL (65-100) H 06/20/18 07:45 Lactic Acid 1.70 mmol/L (0.7-2.0) 06/18/18 02:25 Calcium 7.5 mg/dL (8.4-10.2) L 06/20/18 07:45 Magnesium 1.30 mg/dL (1.7-2.3) L 06/20/18 05:34 Total Bilirubin 0.50 mg/dL (0.1-1.2) 06/20/18 05:34 Direct Bilirubin 0.3 mg/dL (0-0.2) H 06/19/18 05:55 Indirect Bilirubin 0.4 mg/dL 06/19/18 05:55 AST 26 units/L (5-40) 06/20/18 05:34 ALT 22 units/L (7-56) 06/20/18 05:34 Alkaline Phosphatase 96 units/L (35-129) 06/20/18 05:34 C-Reactive Protein 14.00 mg/dL (0.00-1.30) H 06/20/18 05:34 Total Protein 6.0 g/dL (6.3-8.2) L 06/20/18 05:34 Albumin 2.7 g/dL (3.9-5) L 06/20/18 05:34 Albumin/Globulin Ratio 0.8 % 06/20/18 05:34 Triglycerides 60 mg/dL (2-149) 06/19/18 05:55 Lipase 132 units/L (13-60) H 06/20/18 05:34 HCG, Qual Negative (Negative) 06/17/18 23:07 Urine Color Yellow (Yellow) 06/18/18 06:27 Urine Turbidity Clear (Clear) 06/18/18 06:27 Urine pH 6.0 (5.0-7.0) 06/18/18 06:27 Ur Specific [place] 1.060 (1.003-1.030) H 06/18/18 06:27 Urine Protein 30 mg/dl mg/dL (Negative) 06/18/18 06:27 Urine Glucose (UA) 50 mg/dL (Negative) 06/18/18 06:27 Urine Ketones 80 mg/dL (Negative) 06/18/18 06:27 Urine Blood Sm (Negative) 06/18/18 06:27 Urine Nitrite Neg (Negative) 06/18/18 06:27 Urine Bilirubin Neg (Negative) 06/18/18 06:27 Urine Urobilinogen < 2.0 mg/dL (<2.0) 06/18/18 06:27 Ur Leukocyte Esterase Neg (Negative) 06/18/18 06:27 Urine WBC (Auto) 2.0 /HPF (0.0-6.0) 06/18/18 06:27 Urine RBC (Auto) 4.0 /HPF (0.0-6.0) 06/18/18 06:27 U Epithel Cells (Auto) 7.0 /HPF (0-13.0) 06/18/18 06:27 Urine Mucus Few /HPF 06/18/18 06:27 Active Medications - Current Medications Current Medications: Generic Name Dose Route Start Last Admin Trade Name Freq PRN Reason Stop Dose Admin Acetaminophen 650 mg 06/18/18 03:17 Tylenol PO Q4H PRN Pain MILD(1-3)/Fever >100.5/NARAYANAN Folic Acid 1 mg 06/19/18 18:00 06/20/18 10:55 Folvite PO 1 mg QDAY MEENA Administration Guaifenesin 10 ml 06/18/18 18:53 06/20/18 11:10 Guaifenesin Dm Syrup PO 10 ml Q6H PRN Administration Cough Hydromorphone HCl 1 mg 06/18/18 13:00 06/20/18 11:10 Dilaudid IV 1 mg Q4H PRN Administration Pain , Severe (7-10) Dextrose/Sodium Chloride 1,000 mls @ 75 mls/hr 06/19/18 16:00 06/19/18 18:03 D5/0.45ns IV 75 mls/hr DIRECT MEENA Administration Magnesium Sulfate 4 gm in 100 mls @ 25 mls/hr 06/20/18 12:24 Magnesium Sulfate 4gm/100ml IV 06/20/18 16:23 ONCE ONE Potassium Chloride 10 meq in 100 mls @ 100 mls/hr 06/20/18 12:00 Kcl 10meq/100ml IV 06/20/18 15:59 Q1H MEENA Lorazepam 2 mg 06/18/18 03:31 Ativan IV Q1HR PRN CIWA-Ar 8-15 Lorazepam 4 mg 06/18/18 03:31 Ativan IV Q1HR PRN CIWA-Ar 16-25 Multivitamins 1 each 06/20/18 10:00 06/20/18 10:55 Theragran Tab PO 1 each QDAY MEENA Administration Ondansetron HCl 4 mg 06/18/18 03:17 Zofran IV Q4H PRN Nausea And Vomiting Pantoprazole Sodium 40 mg 06/20/18 10:00 06/20/18 10:55 Protonix PO 40 mg DAILY MEENA Administration Potassium Chloride 40 meq 06/19/18 16:00 06/20/18 10:55 K-Dur PO 06/22/18 15:59 40 meq QDAY MEENA Administration Sodium Chloride 10 ml 06/18/18 10:00 06/20/18 11:11 Sodium Chloride Flush Syringe 10 Ml IV 10 ml BID MEENA Administration Sodium Chloride 10 ml 06/18/18 03:17 Sodium Chloride Flush Syringe 10 Ml IV PRN PRN LINE FLUSH Thiamine HCl 100 mg 06/19/18 18:00 06/20/18 10:55 Vitamin B-1 PO 100 mg QDAY MEENA Administration Nutrition/Malnutrition Assess - Dietary Evaluation Nutrition/Malnutrition Findings: Nutrition Notes Start: 06/19/18 09:02 Freq: Status: Active Protocol: Document 06/19/18 09:02 RD (Rec: 06/19/18 09:38 RD [email or web address]) Co-Sign 06/19/18 09:02 OL Nutrition Notes Need for Assessment generated from: Low BMI Initial or Follow up Brief Note Subjective/Other Information RD screen for Low BMI. BMI= 33 .0 ERROR.
[2018-06-20] MEDS: FLAGYL PO SCH ×2 (16:17→22:11)
[2018-06-20] MEDS: LEVAQUIN PO SCH (16:50)
[2018-06-21] MEDS: KCL 10MEQ/100ML 10 MEQ/100 ML BAG IV SCH (00:10)
[2018-06-21] MEDS: DILAUDID IV PRN ×2 (02:27→07:50)
[2018-06-21 04:45] VITALS: BP 141/98
[2018-06-21] MEDS: FLAGYL PO SCH (06:49)
[2018-06-21 07:00] LABS: BUN/Creatinine Ratio 5; Blood Urea Nitrogen 2 mg/dL (7-17); Calcium 8.1 mg/dL (8.4-10.2); Hemolysis Index 3
[2018-06-21] MEDS: PROTONIX PO SCH (09:46)
[2018-06-21] MEDS: LEVAQUIN PO SCH (09:46)
[2018-06-21] MEDS: THERAGRAN Tab PO SCH (09:46)
[2018-06-21] MEDS: VITAMIN B-1 PO SCH (09:46)
[2018-06-21] MEDS: FOLVITE PO SCH (09:47)
[2018-06-21] MEDS: SODIUM CHLORIDE FLUSH SYRINGE 10 ML IV SCH (09:47)
[2018-06-21] MEDS: K-DUR PO SCH (09:48)
--- NOTE | 2018-06-21 09:56 | Discharge Summary ---
Providers - Providers Date of Admission: 06/18/18 03:17 Attending physician: GARTH VO MD 06/18/18 06:17 Consult to Physician [CONS] Routine Comment: Consulting Provider: CHARLOTTE MCGRATH Physician Instructions: Reason For Exam: ?colitis, ?hematemesis Primary care physician: YOBANI MACHUCA Hospitalization Condition: Stable Hospital course: 33F w hx of etoh abuse pw abdominal pain found to have pancreatitis -she was rx with ivf, pain meds and improved -MRCP showed acute pancreatitis but no choledocholithiasis or mass -last EGD 06/29/2015 by showed small hiatal hernia, non-bleeding gastric ulcer, and gastritis (bx result positive for H.pylori; s/p treatment) -she had n/v and later mild hematemesis, did not require blood transfusion, it r esolved with no specific intervention, was put on PPI, she was seen by GI -her electrolytes were repleted -she was counseled on etoh cessation, preventive health >16 minutes -she was rx with abx for enteritis -diet was advanced and she was dc Diagnosis Acute alcoholic pancreatitis Transaminitis Possible colitis/ileitis per CT abd/pelvis intractable nausea vomiting Hematemesis likely due to MW tear Hypokalemia/Hypomagnesemia Alcohol abuse Intractable nausea and vomiting acute enteritis Disposition: DC-01 TO HOME OR SELFCARE Time spent for discharge: 33 mins Core Measure Documentation - Palliative Care Palliative Care/ Comfort Measures: Not Applicable - Core Measures Any of the following diagnoses?: none Exam - Constitutional Vitals: Temp Pulse Resp BP Pulse Ox 98.8 F 83 18 141/98 97 06/21/18 03:51 06/21/18 06:00 06/21/18 03:51 06/21/18 03:51 06/21/18 09:07 General appearance: Present: no acute distress, well-nourished - EENT Eyes: Present: PERRL ENT: hearing intact, clear oral mucosa - Neck Neck: Present: supple, normal ROM - Respiratory Respiratory effort: normal Respiratory: bilateral: CTA - Cardiovascular Heart Sounds: Present: S1 & S2. Absent: rub, click - Extremities Extremities: pulses symmetrical, No edema Peripheral Pulses: within normal limits - Abdominal General gastrointestinal: Present: soft, non-tender, non-distended, normal bowel sounds Female genitourinary: Present: normal - Integumentary Integumentary: Present: clear, warm, dry - Musculoskeletal Musculoskeletal: gait normal, strength equal bilaterally - Psychiatric Psychiatric: appropriate mood/affect, intact judgment & insight - Neurologic Neurologic: CNII-XII intact, moves all extremities Plan Follow up with: YOBANI MACHUCA MD [Primary Care Provider] - 7 Days Forms: Work/School Release Form Prescriptions: Fluconazole [Diflucan TAB] 150 mg PO ONCE #1 tablet metroNIDAZOLE [Flagyl TAB] 500 mg PO Q8HR 3 Days tablet Folic Acid [Folvite] 1 mg PO QDAY #30 tablet Potassium Chloride [K-Dur] 20 meq PO QDAY #7 tablet levoFLOXacin [Levaquin TAB] 500 mg PO Q24HR 3 Days tablet oxyCODONE /ACETAMINOPHEN [Percocet 5/325] 1 tab PO Q6HR PRN #20 tablet PRN Reason: Pain Thiamine [Vitamin B-1] 100 mg PO QDAY #30 tablet
--- NOTE | 2018-06-21 11:15 | Gastroenterology Progress Note ---
Assessment and Plan 1.acute pancreatitis -afebrile -WBC 12.6-trending down -lipase 132-trending down -LFTs-now trended down to WNL -CRP 14.00-trending down -triglyceride-60 -abd CT showed pancreatitis (no evidence of necrosis or pseudocyst) -abd U/S showed hepatic steatosis, sludge in gallbaldder (no acute cholecystitis), and enlarged CBD (7.8mm; stone not excluded) -MRCP showed acute pancreatitis but no choledocholithiasis or mass -etiology-most likely 2/2 ETOH -clinically, patient is stable with abd pain improving. Tolerating soft diet. -continue to trend labs and supportive care with IVF, pain medications, antiemetics, empiric antibiotics, etc. -alcohol cessation discussed/encouraged with patient-monitor for signs of withdrawal -electrolyte management per primary team -recommend transiting pain medications to PO from IV, if tolerates okay to be d/c per GI standpoint with f/u in clinic ~ 2 weeks for further management 2.hematemesis 3.H/o PUD -plt and INR WNL -H/H WNL -continue to monitor H/H and transfuse as needed -no active signs of bleeding overnight or this am -last EGD 06/29/2015 by showed small hiatal hernia, non-bleeding gastric ulcer, and gastritis (bx result positive for H.pylori; s/p treatment) -etiology-likely 2/2 M-W tear vs esophagitis vs other -no plan for EGD at this time given no clinical evidence of significant GI bleeding -continue PPI -avoid NSAIDs -continue supporitive care Subjective Date of service: 06/21/18 Principal diagnosis: hematemesis Interval history: Patient sitting in bed this am w/o acute distress. Reports feeling better with abd pain improving. Objective - Constitutional Vitals: Temp Pulse Resp BP Pulse Ox 98.8 F 83 18 141/98 97 06/21/18 03:51 06/21/18 06:00 06/21/18 03:51 06/21/18 03:51 06/21/18 09:07 General appearance: no acute distress - Respiratory Respiratory: bilateral: CTA - Cardiovascular Rhythm: regular - Gastrointestinal General gastrointestinal: Present: soft, tender (slight TTP in epigastric/RUQ/LUQ), non-distended, normal bowel sounds - Neurologic Neurological: alert and oriented x3 - Labs CBC & Chem 7: 06/20/18 05:34 06/21/18 05:34 Labs: Laboratory Results - last 24 hr 06/21/18 05:34 Sodium 141 Potassium 3.6 Chloride 103.6 Carbon Dioxide 23 Anion Gap 18 BUN 2 L Creatinine 0.4 L Estimated GFR > 60 BUN/Creatinine Ratio 5 Glucose 99 Calcium 8.1 L Magnesium 1.80
--- NOTE | 2018-06-25 07:28 | Ultrasound Report ---
ULTRASOUND ABDOMEN LIMITED: TECHNIQUE: Transabdominal ultrasound with color Doppler interrogation. HISTORY: Abdominal pain. COMPARISON: 06/18/18. FINDINGS: LIVER: Moderate to severe diffuse fatty infiltration is noted. BILIARY SYSTEM: There is a mild degree of sludge in the gallbladder. No shadowing gallstones, wall thickening or surrounding fluid. The CBD measures 7 mm. PANCREAS: Only the proximal pancreas is visualized which appears edematous. No obvious mass or fluid collection. RIGHT KIDNEY: Normal. PROXIMAL AORTA: Normal. ASCITES: Trace perihepatic ascites. IMPRESSION: Fatty infiltration of the liver. Sludge in the gallbladder. Mildly dilated CBD measuring 7 mm. Trace ascites.
== END 2018-06-21 14:27 | disposition home or self-care (01) | DRG 368 ==
LOC: ED 22:26 → 4A 06-18 03:17
PROVIDERS: ADMIT Internal Medicine; ATTEND Internal Medicine
DX: K22.6 Gastro-esophageal laceration-hemorrhage syndrome (principal); K85.20 Alcohol induced acute pancreatitis without necrosis or infection; R65.10 Systemic inflammatory response syndrome (SIRS) of non-infectious origin without acute organ dysfunction; F10.188 Alcohol abuse with other alcohol-induced disorder; K52.9 Noninfective gastroenteritis and colitis, unspecified; F17.210 Nicotine dependence, cigarettes, uncomplicated; R74.0 Nonspecific elevation of levels of transaminase and lactic acid dehydrogenase [LDH]; E83.42 Hypomagnesemia; Y90.9 Presence of alcohol in blood, level not specified; E87.6 Hypokalemia; Z82.49 Family history of ischemic heart disease and other diseases of the circulatory system; Z90.89 Acquired absence of other organs; Z87.11 Personal history of peptic ulcer disease; Z71.41 Alcohol abuse counseling and surveillance of alcoholic; Z71.6 Tobacco abuse counseling
CPT/HCPCS: 36415; 74177; 74181; 76705; 80048; 80053; 80076; 81001; 82140; 83690; 83735; 84478; 84703; 85007; 85014; 85018; 85025; 85610; 85730; 86140; 87040; 99406; G0378; C9113; J1170; J1200; J2270; J2543; J2765; J3475; J3480; J7030; J7042; Q9967